=== PATIENT | female | born 1975 | race Caucasian/White ===

== ENCOUNTER → 2016-09-09 | Outpatient (REF) | payer OTHER | LOC: M LAB REF 16:19 | PROVIDERS: ATTEND Physician Assistant | DX: J02.9 Acute pharyngitis, unspecified (principal) ==

== ENCOUNTER 2017-04-01 11:03 | Emergency (ER) | payer OTHER ==
[~2017-04-01] VITALS: Ht 149.9 cm; Wt 97.0 kg
[2017-04-01 11:04] VITALS: BP 165/88
[2017-04-01] MEDS ORDERED: MOTR200T44 PO (11:12)
[2017-04-01] MEDS ORDERED: DIPH25CA PO (11:12)
[2017-04-01] MEDS ORDERED: SERT-155 (11:12)
[2017-04-01] MEDS ORDERED: AMET90TA (11:12)
[2017-04-01] MEDS ORDERED: DOXY-278 PO (11:14)
[2017-04-01] MEDS ORDERED: IBUP80TA PO (13:39)
== END 2017-04-01 13:49 | disposition home or self-care (01) ==
LOC: M ED 11:03
DX: R59.1 Generalized enlarged lymph nodes (principal); R68.84 Jaw pain; Z79.899 Other long term (current) drug therapy; Z88.0 Allergy status to penicillin; Z88.2 Allergy status to sulfonamides; J30.89 Other allergic rhinitis; Z87.898 Personal history of other specified conditions

== ENCOUNTER → 2017-04-02 | Outpatient (CLI) | payer OTHER ==
[~2017-04-02] MED LIST: AMET90TA; DIPH25CA PO; DOXY-278 PO; IBUP80TA PO; MOTR200T44 PO; SERT-155
[2017-04-02 17:39] LABS: MEAN CORPUSCULAR HEMOGLOBIN 31.4 pg (27.0-33.0); MEAN CORPUSCULAR VOLUME 92.3 fl (80.0-96.0); RED CELL DISTRIBUTION WIDTH 11.9 % (11.5-14.5)
[2017-04-02 17:46] LABS: ALBUMIN 3.5 GM/DL (3.2-5.2); ALBUMIN/GLOBULIN RATIO 0.88 (1.00-1.93); ALKALINE PHOSPHATASE 86 U/L (45-117); ALT/SGPT 53 U/L (12-78); ANION GAP 8 MEQ/L (8-16); AST/SGOT 38 U/L (15-37); BILIRUBIN,TOTAL 0.5 MG/DL (0.2-1.0); BLOOD UREA NITROGEN 9 MG/DL (7-18); CALCIUM LEVEL 8.8 MG/DL (8.5-10.1); CARBON DIOXIDE LEVEL 27 MEQ/L (21-32); CHLORIDE LEVEL 104 MEQ/L (98-107); CREATININE FOR GFR 0.55 MG/DL (0.55-1.02); GLOMERULAR FILTRATION RATE > 60.0 (>60); GLUCOSE, FASTING 74 MG/DL (70-105); POTASSIUM SERUM 4.2 MEQ/L (3.5-5.1); SODIUM LEVEL 139 MEQ/L (136-145); TOTAL PROTEIN 7.5 GM/DL (6.4-8.2)
[2017-04-02 18:46] LABS: EOSINOPHILS 5 % (0-5)
[2017-04-05 00:07] LABS: Lyme Disease IgG/IgM Antibodie <0.91 ISR (0.00-0.90); Lyme Disease IgM Ab Quantitati <0.80 index (0.00-0.79)
== END ==
LOC: M WUC 13:22
PROVIDERS: ATTEND Physician Assistant
DX: L02.811 Cutaneous abscess of head [any part, except face] (principal)

== ENCOUNTER → 2017-04-06 | Outpatient (REF) | payer OTHER ==
[2017-04-08 14:12] LABS: SJOGREN'S ANTI SS-A <0.2 AI (0.0-0.9); SJOGREN'S ANTI SS-B <0.2 AI (0.0-0.9)
== END ==
LOC: M LAB REF 15:02
PROVIDERS: ATTEND Internal Medicine
DX: L03.212 Acute lymphangitis of face (principal)

== ENCOUNTER → 2018-01-26 | Outpatient (REF) | payer OTHER | LOC: M LAB REF 16:40 | DX: N39.0 Urinary tract infection, site not specified (principal) ==

== ENCOUNTER → 2018-07-10 | Outpatient (REF) | payer OTHER ==
[~2018-07-10] MED LIST changes: -DOXY-278 PO; +DOXY-350 PO
== END ==
LOC: M LAB REF 11:22
PROVIDERS: ATTEND Radiology Diagnostic Radiology
DX: N60.32 Fibrosclerosis of left breast (principal)

== ENCOUNTER → 2020-08-24 | Outpatient (REF) | payer OTHER ==
[~2020-08-24] MED LIST changes: -DIPH25CA PO; +DIPH25CA32 PO; -SERT-155; +SERT50TA29
[2020-08-25 12:51] LABS: HEPATITIS A ANTIBODY IGM NEGATIVE (NEGATIVE); HEPATITIS B CORE ANTIBODY IGM NEGATIVE (NEGATIVE); HEPATITIS B SURFACE ANTIGEN NEGATIVE (NEGATIVE)
== END ==
LOC: M LAB REF 11:28
PROVIDERS: ATTEND Internal Medicine
DX: K76.0 Fatty (change of) liver, not elsewhere classified (principal); D13.4 Benign neoplasm of liver

== ENCOUNTER → 2021-01-11 | Outpatient (REF) | payer OTHER ==
[2021-01-11 18:19] LABS: C REACTIVE PROTEIN QUANTITATIV 1.02 MG/DL (0.00-0.30)
== END ==
LOC: M LAB REF 16:30
PROVIDERS: ATTEND Internal Medicine
DX: R20.2 Paresthesia of skin (principal); R41.3 Other amnesia

== ENCOUNTER → 2021-02-04 | Outpatient (CLI) | payer OTHER ==
--- NOTE | 2021-02-04 10:29 | REP ---
INDICATION: ASTHMA/DYSPNEA COMPARISON: None. TECHNIQUE: PA and lateral. FINDINGS: The mediastinum and cardiac silhouette are normal. The lung herrera are clear and without acute consolidation, effusion, or pneumothorax. The skeletal structures are intact and normal. IMPRESSION: No acute cardiopulmonary process. <Electronically signed by Fermín Soni > 02/04/21 [id number]
== END ==
LOC: M WUC 09:45
PROVIDERS: ATTEND Internal Medicine
DX: R06.00 Dyspnea, unspecified (principal)

== ENCOUNTER → 2021-05-12 | Outpatient (REF) | payer OTHER | LOC: M LAB REF 16:29 | PROVIDERS: ATTEND Internal Medicine | DX: R20.2 Paresthesia of skin (principal); R41.3 Other amnesia ==

== ENCOUNTER → 2021-05-22 | Outpatient (CLI) | payer OTHER ==
[~2021-05-22] MED LIST changes: +FAMO20TA4 PO; +FLON1SPR; +PROAAER10 INH; +SERT25TA21 PO
== END ==
LOC: M LABSMTC 09:18
PROVIDERS: ATTEND Anesthesiology
DX: Z20.828 Contact with and (suspected) exposure to other viral communicable diseases (principal); Z11.52 Encounter for screening for COVID-19

== ENCOUNTER 2021-05-27 06:03 | Day surgery (SDC) | payer OTHER ==
[~2021-05-27] VITALS: Ht 149.9 cm; Wt 97.1 kg
[~2021-05-27 06:03] MED LIST changes: +LR 1,000 ML IV ONE; +ceFAZolin SOD 2 GM in IV 1 EA IV ONE
--- OUTSIDE RECORDS SUMMARY | 2021-05-27 06:08 | CCD | Continuity of Care Document ---
Author Author Anum GALINDO Organization Unknown Address [address] [place] [id number] Phone [phone] Problems Active Problems Provider Date Allergic asthma without status asthmaticus Alyse Galindo MD Onset: 11/11/2011 Oral contraception Alyse Galindo MD Onset: 11/11/2011 Body mass index 40+ - severely obese Nette Parra WHNP On set: 02/01/2017 Social History Type Date Description Comments Sex Unknown Tobacco Use Start: Unknown Never Smoked Cigarettes Tobacco Use Start: Unknown Non-smoker, Non-drinker, Non-tigist g User Smoking Status Reviewed: 04/16/21 Non-smoker, Non-drinker, Non- drug User Tobacco Use Start: Unknown Patient has never smoked Allergies, Adverse Reactions, Alerts Active Allergies Criticality Reaction | Severity Comments Date PCN Unable to assess criticality 03/03/2006 Sulfa Unable to assess criticality 03/03/2006 Medications Active Medications SIG Qnty Indications Ordering Provide r Date Vitamin D 1,000Units Tablets 2 daily Alyse Galindo MD 10/30/2009 Albuterol Inhalation 90mcg/Dose Ae rosol 2 Puffs Every 6 Hours prn Alyse Galindo MD 2005 Zoloft 50mg Tablets 1 by mouth every day Unknown Benadryl Allergy 25mg Tablets Unknown Immunizations Description No Information Available Vital Signs Date Vital Result Comment 04/16/2021 9:52am BP Systolic 128 mmHg BP Diastolic 74 mmHg Height 59.25 inches 4'11.25" Weight 210.00 lb BMI (Body Mass Index) 42.1 kg/m2 BSA (Body Surface Area) 1.89 m2 04/03/2020 11:32am BP Systolic 136 mmHg BP Diastolic 76 mmHg Height 59.25 inches 4'11.25" Weight 213.00 lb BMI (Body Mass Index) 42.7 kg/m2 BSA (Body Surface Area) 1.90 m2 Results Description No Information Available Procedures Date Code Description Status 04/16/2021 19344 Preventive Visit Est 40-64 Yrs C ompleted 07/10/2018 [id number] Mammogram Completed 07/05/2018 [id number] Mammogram Completed Medical Devices Description No Information Available Encounters Type Date Location Provider Dx Diagnosis Office Visit 04/16/2021 10:00a [facility] program manager slp Alyse Galindo MD N9 2.1 Excessive and frequent menstruation with irregular cycle N94.4 Primary dysmenorrhea D25.1 Intramural leiomyoma of uter us Z01.411 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 R10.819 Abdominal tenderness, unspec ified site Z12.4 Encounter for screening for malignant neoplasm of cervix Z12.39 Encounter for oth screening for malignant neoplasm of breast Assessments Date Code Description Provider 04/16/2021 N92.1 Excessive and frequent menstruat ion with irregular cycle Alyse Galindo MD 04/16/2021 N94.4 Primary dysmenorrhea Janell Galindo MD 04/16/2021 D25.1 Intramural leiomyoma of uterus H Alyse frank MD 04/16/2021 Z01.411 Encounter for gyneco logical examination (general) (routine) with abnormal findings Alyse Galindo MD 04/16/2021 R10.819 Abdominal tenderness, unspecifie d site Alyse Galindo MD 04/16/2021 Z12.4 Encounter for screening for jet gnant neoplasm of cervix Alyse Galindo MD 04/16/2021 Z12.39 Encounter for other screening for malignant neoplasm of breast Alyse Galindo MD Plan of Treatment Future Appointment(s):* 07/07/2021 12:15 pm - Alyse Galindo MD at [facility] program manager slp * 06/09/2021 12:15 pm - Alyse Galindo MD at [facility] program manager slp * 05/27/2021 9:00 am - Alyse Galindo MD at [facility] * 04/29/2022 9:00 am - Alyse Galindo MD at [facility] program manager slp 04/16/2021 - Alyse Galindo MD* N92.1 Excessive and frequent menstruation with irregular cycle * N94.4 Primary dysmenorrhea * D25.1 Intramural leiomyoma of uterus * Z01.411 Encounter for gynecological examination (general) (routine) with abnormal findings * R10.819 Abdominal tenderness, unspecified site * Z12.4 Encounter for screening for malignant neoplasm of cervix* New Labs:* Thinprep W/Reflex HR HPV If Asc-US, Ordered: 04/16/21 * Z12.39 Encounter for other screening for malignant neoplasm of breast Functional Status Description No Information Available Mental Status Description No Information Available Referrals Description No Information Available
--- OUTSIDE RECORDS SUMMARY | 2021-05-27 06:08 | CCD | Continuity of Care Document ---
Author Author Anum Lua M.D. Organization Unknown Address [address] [place] [address] Phone [phone] Care Team Providers Care Licensed Mental Health Counselor Name Role Phone Mary Lua MD [facility] [phone] Problems Active Problems Provider Date Kidney stone Mary Lua M.D. Onset: 1 Chronic nonalcoholic liver disease Mary Lua M.D. O nset: 03/15/2011 Thyrotoxicosis without goiter or other cause Mary beach M.D. Onset: 03/15/2011 Uterine leiomyoma Mary Lua M.D. Onset: 1 Vitamin D deficiency Mary Lua M.D. Onset: 03/15/20 11 Low back pain Mary Lua M.D. Onset: 1 Depressive disorder Mary Lua M.D. Onset: 1 Asthma without status asthmaticus Mary Lua M.D. On set: 03/15/2011 Verruca plantaris Mary Lua M.D. Onset: 1 Social History Type Date Description Comments Sex Unknown ETOH Use Denies alcohol use Tobacco Use Start: Unknown Patient has never smoked Allergies and adverse reactions Active Allergies Criticality Reaction | Severity Comments Date Sulfa Unable to assess criticality Rash 06/03/2008 Penicillins Unable to assess criticality Lips Swell 02/24/2009 Medications Active Medications SIG Qnty Indications Ordering Provide r Date Claritin 10mg Tablets 1 by mouth every day as needed Mary Lua M.D. 05/12/20 21 Afrin 12 Hour 0.05% Solution prn Mary Lua M.D. 02/05/2020 Albuterol Sulfate (2 .5mg/3ML) 0.083% Nebulizer may use 3 milliliters q4-6hr as needed for shortness of breath 7 5ml J06.9 Jeff Barahona MD 07/03/2019 Fluticasone Propionate Nasal [place] 50mcg/Act Suspension 2 sprays in each nostril daily for two weeks 29.7ml J06 .9 Mary Lua M.D. 06/19/2019 Famotidine 20mg Tablets 1 by mouth every day as needed 30tabs Mary Lua M.D. 11/30/19 18 Vitamin D3 2000Unit Tablets 1 by mouth every day- sporatic Mary Lua M.D. 12/2017 Benadryl Allergy 25mg Tablets 1-2 by mouth every night at bedtime Mary Lua M.D. 1 08/07/2016 Sertraline HCL 50mg Tablets Take One To One And One-Half Tablets By Mouth Every Day 135tabs Janet Lua M.D. 08/10/2016 Proair HFA 108(90Base) mcg/Act Aer osol inhale two puffs by mouth four times a day as needed 25.5gm Mary Lua M.D. 01/15/2015 Saline Nasal [place] 0.65% Solution 6-8x/d as directed 1units Mary Lua M.D. 08/07/19 13 Medications Administered in Office Medication SIG Qnty Indications Ordering Provider Date Immunization Adminstration,1 Vaccine/Tox oid Injection Mary Lua M.D. 05/24 Immunization Adminstration,1 Vaccine/Tox oid Injection Mary Lua M.D. 01/21 Immunization Adminstration,1 Vaccine/Tox oid Injection La Nena Newman, FRED 019 Administration Of Flu Vaccine Inj ection Edelmira Brunson,KEVIN 05/17/2005 Administration Of Flu Vaccine Inj ection BoyEdelmira FNP 05/05/2004 Immunizations CPT Code Status Date Vaccine Lot # 12930 Given 06/08/2020 Influenza Vaccin e Quadrivalent Preser/Antibiotic Free Im Use [id number] 89480 Given 02/05/2020 Tetanus/Diptheria(Td)Toxoids Preservative Free [id number] 09473 Given 04/29/2019 Influenza Vaccin e Quadrivalent Preser/Antibiotic Free Im Use 117690 76429 Given 08/29/2017 Influenza Vaccin e Quadrivalent Preser/Antibiotic Free Im Use [id number] Q2037 Given 05/29/2014 Fluvirin Virus Vaccine 52024 21 Q2037 Given 05/28/2013 Fluvirin Virus Vaccine 73681 01 Q2037 Given 05/05/2011 Fluvirin Virus Vaccine 02995 Given 07/01/2010 Adacel- Tetanus Diphtheria P ertussis 56352 Given 05/18/2010 Influenza Virus Vaccine 32045 Given 05/17/2005 Tetanus/Diptheria(Td)Toxoids 27252 Given 05/17/2005 Influenza Virus Vaccine 13485 Given 05/05/2004 Influenza Virus Vaccine Vital Signs Date Vital Result Comment 05/12/2021 11:01am BP Systolic 144 mmHg RT Arm BP Diastolic 80 mmHg RT Arm Heart Rate 78 /min Height 58.50 inches 4'10.50" Weight 213.38 lb O2 Saturation Level with Exercise 98 % RM Air BMI (Body Mass Index) 43.8 kg/m2 02/08/2021 2:06pm BP Systolic 136 mmHg RT Arm BP Diastolic 84 mmHg RT Arm Heart Rate 88 /min Height 58.50 inches 4'10.50" Weight 208.00 lb O2 Saturation Level with Exercise 97 % RM Air BMI (Body Mass Index) 42.7 kg/m2 Results Test Acquired Date Facility Test Result H/L Range Note Coronavirus 2019 Nasopharygeal 05/22/[address] [id number] [phone] Coronavirus 2019 Nasopharygeal ASSAY INFORMATIO <SEE N OTE> 1 Laboratory test finding 05/12/2021 [facility] [address] [place], [place] [id number] [phone] C Reactive Protein Quantitativ 1.05 mg/dL High 0 .00-0.30 Complete Blood Count 05/12/2021 [facility]: [place] [address] [phone] WBC 7.6 x10*3/UL 4.1 - 10.9 RBC 4.78 x10*6/UL 4.20 - 6.30 Hemoglobin 14.6 g/dL 12.0 - 18.0 Hematocrit 42.9 % 37.0 - 51.0 MCV 89.7 fL 80.0 - 97.0 MCH 30.5 pg 26.0 - 32.0 MCHC 34.0 g/dL 31.0 - 38.0 RDW 12.6 % 11.6 - 13.7 PLT 370 x10*3/UL 140 - 440 MPV 8.7 FL 7.8 - 11.0 Lymph % 26.2 % 10.0 - 58.5 Mid % 5.6 % 1.7 - 9.3 Neut % 68.2 % 37.0 - 92.0 Lymph # 2.0 x10*3/UL 0.6 - 4.1 Mid # 0.4 x10*3/UL 0.1 - 0.6 Neut # 5.2 x10*3/UL 2.0 - 7.8 Laboratory test finding 05/12/2021 [facility] [place] [facility]: [place] [address] [phone] Sed Rate 37 mm/hr High 0 - 15 Comprehensive Chem Profile 05/12/2021 [facility]: [place] [address] [phone] Glucose 74 mg/dL 74 - 99 2 BUN 13 mg/dL 7 - 18 Creatinine 0.6 mg/dL 0.6 - 1.3 Sodium 137 mEq/L 136 - 145 Potassium 4.4 mEq/L 3.5 - 5.1 Chloride 100 mEq/L 98 - 107 Carbon Dioxide 23 mEq/L 21 - 32 Calcium 9.1 mg/dL 8.5 - 10.1 Alk. Phosphatase 86 mg/dL 46 - 116 Total Bilirubin 0.7 mg/dL 0.2 - 1.0 Ast (Sgot) 42 U/L High 15 - 37 Alt (SGPT) 80 U/L High 12 - 78 Albumin 3.9 g/dL 3.4 - 5.0 Total Protein 8.0 g/dL 6.4 - 8.2 A/G Ratio 0.95 CALC Low 1.00 - 1.90 GFR >= 60 mL/min >60 GFR >= 60 mL/min >60 3 Lipid Profile 05/12/2021 [facility]: [place] [address] [phone] Cholesterol 222 mg/dL High 131 - 200 Triglycerides 119 mg/dL 30 - 150 HDL Cholesterol 59 mg/dL 35 - 60 LDL (Calculated) 139 CALC 50 - 159 Laboratory test finding 05/12/2021 [facility]: [place] [address] [phone] Thyroid Stimulating Hormone 1.23 uIU/mL 0.3 6 - 3.74 Laboratory test finding 01/11/2021 [facility] [address] [place], [place] [id number] [phone] C Reactive Protein Quantitativ 1.02 mg/dL High 0 .00-0.30 Vitamin B12 Level 401 pg/mL Normal 247-911 4 Complete Blood Count 01/11/2021 [facility]: [place] [address] [phone] WBC 8.1 x10*3/UL 4.1 - 10.9 RBC 4.78 x10*6/UL 4.20 - 6.30 Hemoglobin 14.3 g/dL 12.0 - 18.0 Hematocrit 43.1 % 37.0 - 51.0 MCV 90.1 fL 80.0 - 97.0 MCH 30.0 pg 26.0 - 32.0 MCHC 33.3 g/dL 31.0 - 38.0 RDW 12.8 % 11.6 - 13.7 PLT 352 x10*3/UL 140 - 440 MPV 8.7 FL 7.8 - 11.0 Lymph % 22.4 % 10.0 - 58.5 Mid % 6.0 % 1.7 - 9.3 Neut % 71.6 % 37.0 - 92.0 Lymph # 1.8 x10*3/UL 0.6 - 4.1 Mid # 0.5 x10*3/UL 0.1 - 0.6 Neut # 5.8 x10*3/UL 2.0 - 7.8 Laboratory test finding 01/11/2021 [facility]: [place] [address] [phone] Sed Rate 28 mm/hr High 0 - 15 Magnesium 1.9 mg/dL 1.8 - 2.4 Comprehensive Chem Profile 01/11/2021 [facility]: [place] [address] [phone] Glucose 104 mg/dL High 74 - 99 5 BUN 16 mg/dL 7 - 18 Creatinine 0.7 mg/dL 0.6 - 1.3 Sodium 140 mEq/L 136 - 145 Potassium 3.5 mEq/L 3.5 - 5.1 Chloride 104 mEq/L 98 - 107 Carbon Dioxide 29 mEq/L 21 - 32 Calcium 9.1 mg/dL 8.5 - 10.1 Alk. Phosphatase 81 mg/dL 46 - 116 Total Bilirubin 0.5 mg/dL 0.2 - 1.0 Ast (Sgot) 30 U/L 15 - 37 Alt (SGPT) 60 U/L 12 - 78 Albumin 3.7 g/dL 3.4 - 5.0 Total Protein 7.9 g/dL 6.4 - 8.2 A/G Ratio 0.88 CALC Low 1.00 - 1.90 GFR >= 60 mL/min >60 GFR >= 60 mL/min >60 6 Laboratory test finding 01/11/2021 [facility]: [place] [address] [phone] Thyroid Stimulating Hormone 1.38 uIU/mL 0.3 6 - 3.74 1 ASSAY INFORMATION: Real Time RT-PCR NOTE: The COVID-19 assay has been cleared by the U.S. Food and Drug Administration under the Emergency Use Authorization (EUA). [facility] and [facility] are designated as high complexity laboratories by the Clinical Laboratory Improvement Amendments of 1988(CLIA) and are qualified to perform this test. Not Detected 2 100-125 mg/dL PRE-DIABET ES/FASTING >126 mg/dL DIABETES/FASTING 3 CHRONIC KIDNEY DISEASE STAGI NG PER NKF STAGE I & II GFR >= 60 NORMAL TO MILDLY DECREASED STAGE III GFR 30-59 MODERATELY DECREASED STAGE IV GFR 15-29 SEVERELY DECREASED STAGE V GFR <15 VERY LITTLE GFR LEFT ESRD GFR <15 ON RN CAMP 4 VITAMIN B12 NORMAL RANGE NORMAL 247 - 911 PG/ML INDETERMINATE 211 - 246 PG/ML DEFICIENT LESS THAN 211 PG/ML 5 100-125 mg/dL PRE-DIABET ES/FASTING >126 mg/dL DIABETES/FASTING 6 CHRONIC KIDNEY DISEASE STAGI NG PER NKF STAGE I & II GFR >= 60 NORMAL TO MILDLY DECREASED STAGE III GFR 30-59 MODERATELY DECREASED STAGE IV GFR 15-29 SEVERELY DECREASED STAGE V GFR <15 VERY LITTLE GFR LEFT ESRD GFR <15 ON RN CAMP Procedures Date Code Description Status 05/12/2021 88801 Office/Outpatient Established Mo d MDM 30-39 Min Completed 05/12/2021 66916 EKG/Interpretation & Report Comp leted 02/08/2021 08374 Office/Outpatient Established Mo d MDM 30-39 Min Completed 01/11/2021 68134 Office/Outpatient Established Mo d MDM 30-39 Min Completed 07/10/2018 [id number] Mammogram Completed 07/05/2018 [id number] Mammogram Completed 04/06/2010 [id number] Diabetic Foot Exam Completed Medical Devices Description No Information Available Encounters Type Date Location Provider Dx Diagnosis Office Visit 05/12/2021 11:00a [facility] Z01.810 Encounter for preprocedural cardiovascular examination N94.6 Dysmenorrhea, unspecified J30.9 Allergic rhinitis, unspecifi ed J45.909 Unspecified asthma, uncompli cated F34.1 Dysthymic disorder K30 Functional dyspepsia K76.0 Fatty (change of) liver, not elsewhere classified Z68.41 Body mass index [BMI] 40.0-4 4.9, adult E66.01 Morbid (severe) obesity due to excess calories N20.0 Calculus of kidney L73.9 Follicular disorder, unspeci fied Office Visit 02/08/2021 [facility] R20.2 Paresthesia of skin J45.909 Unspecified asthma, uncompli cated Z86.16 Personal history of Covid-19 F41.9 Anxiety disorder, unspecifie d J30.9 Allergic rhinitis, unspecifi ed K30 Functional dyspepsia K76.0 Fatty (change of) liver, not elsewhere classified Z68.41 Body mass index [BMI] 40.0-4 4.9, adult E66.01 Morbid (severe) obesity due to excess calories Z13.89 Encounter for screening for other disorder Office Visit 01/11/2021 2:00p [facility] Alysia Lua M.D. J45.909 Unspecified asthma, uncompli cated R20.2 Paresthesia of skin T50.B95A Adverse effect of other floridalma l vaccines, initial encounter Z86.16 Personal history of Covid-19 F41.9 Anxiety disorder, unspecifie d J30.9 Allergic rhinitis, unspecifi ed K30 Functional dyspepsia K76.0 Fatty (change of) liver, not elsewhere classified E66.09 Other obesity due to excess calories E78.00 Pure hypercholesterolemia, u nspecified Z68.41 Body mass index [BMI] 40.0-4 4.9, adult Assessments Date Code Description Provider 05/12/2021 Z01.810 Encounter for preprocedural card iovascular examination Mary Lua M.D. 05/12/2021 N94.6 Dysmenorrhea, unspecified Mary Lua M.D. 05/12/2021 J30.9 Allergic rhinitis, unspecified J andrea Lua M.D. 05/12/2021 J45.909 Unspecified asthma, uncomplicate d Mary Lua M.D. 05/12/2021 F34.1 Dysthymic disorder Mary restrepo M.D. 05/12/2021 K30 Functional dyspepsia Mary Mohan M.D. 05/12/2021 K76.0 Fatty (change of) liver, not els ewhere classified Mary Lua M.D. 05/12/2021 Z68.41 Body mass index [BMI]40.0-44.9, adult Mary Lua M.D. 05/12/2021 E66.01 Morbid (severe) obesity due to e xcess calories Mary Lua M.D. 05/12/2021 N20.0 Calculus of kidney Mary restrepo M.D. 05/12/2021 L73.9 Follicular disorder, unspecified Mary Lua M.D. 02/08/2021 R20.2 Paresthesia of skin Mary scales M.D. 02/08/2021 J45.909 Unspecified asthma, uncomplicate d Mary Lua M.D. 02/08/2021 Z86.16 Personal history of Covid-19 Reagan Lua M.D. 02/08/2021 F41.9 Anxiety disorder, unspecified Constance Lua M.D. 02/08/2021 J30.9 Allergic rhinitis, unspecified J andrea Lua M.D. 02/08/2021 K30 Functional dyspepsia Mary Mohan M.D. 02/08/2021 K76.0 Fatty (change of) liver, not els ewhere classified Mary Lua M.D. 02/08/2021 Z68.41 Body mass index [BMI]40.0-44.9, adult Mary Lua M.D. 02/08/2021 E66.01 Morbid (severe) obesity due to e xcess calories Mary Lua M.D. 02/08/2021 Z13.89 Encounter for screening for othe r disorder Mary Lua M.D. 01/11/2021 J45.909 Unspecified asthma, uncomplicate d Mary Lua M.D. 01/11/2021 R20.2 Paresthesia of skin Mary scales M.D. 01/11/2021 T50.B95A Adverse effect of other viral va ccines, initial encounter Mary Lua M.D. 01/11/2021 Z86.16 Personal history of Covid-19 Reagan Lua M.D. 01/11/2021 F41.9 Anxiety disorder, unspecified Constance Lua M.D. 01/11/2021 J30.9 Allergic rhinitis, unspecified J andrea Lua M.D. 01/11/2021 K30 Functional dyspepsia Mary Mohan M.D. 01/11/2021 K76.0 Fatty (change of) liver, not els ewhere classified Mary Lua M.D. 01/11/2021 E66.09 Other obesity due to excess elba jose de jesus Mary Lua M.D. 01/11/2021 E78.00 Pure hypercholesterolemia, unspe cified Mary Lua M.D. 01/11/2021 Z68.41 Body mass index [BMI]40.0-44.9, adult Mary Lua M.D. Plan of Treatment Future Appointment(s):* 08/10/2021 9:10 am - Lab Schedule at [facility] * 08/11/2021 11:30 am - Mary Lua M.D. at [facility] 02/08/2021 - Mary Lua M.D.* R20.2 Paresthesia of skin * J45.909 Unspecified asthma, uncomplicated * Z86.16 Personal history of Covid-19 * F41.9 Anxiety disorder, unspecified * J30.9 Allergic rhinitis, unspecified * K30 Functional dyspepsia * K76.0 Fatty (change of) liver, not elsewhere classified * Z68.41 Body mass index [BMI]40.0-44.9, adult * E66.01 Morbid (severe) obesity due to excess calories * Z13.89 Encounter for screening for other disorder * All * Comments:* 9. Irregular menses. Hysterectomy cancelled because of meaghan COVID. She is holding off on proceeding at this point. She does see her C D Stripper in April 02. Health Maintenance. She had COVID, had vaccine shot #1, refuses vaccine shot #2 because of adverse reactions. Functional Status Description No Information Available Mental Status Description No Information Available Referrals Description No Information Available
--- OUTSIDE RECORDS SUMMARY | 2021-05-27 06:08 | CCD | Continuity of Care Document ---
Author Author Anum Lua M.D. Organization Unknown Address [address] [place] [address] Phone [phone] Care Team Providers Care Director Fundraising Name Role Phone Mary Lua MD [facility] [phone] Problems Active Problems Provider Date Kidney stone [...] Jeff Barahona MD 07/03/2019 Fluticasone Propionate Nasal [place] 50mcg/Act Suspension 2 sprays in each nostril [...] 25.5gm Mary Lua M.D. 01/15/2015 Saline Nasal [place] 0.65% Solution 6-8x/d as directed 1units Mary Lua M.D. 08/07/19 13 Medications Administered in Office Medication SIG Qnty Indications Ordering Provider Date Immunization Adminstration,1 Vaccine/Tox oid Injection Mary Lua M.D. 05/24 Immunization Adminstration,1 Vaccine/Tox oid Injection Mary Lua M.D. 01/21 Immunization Adminstration,1 Vaccine/Tox oid Injection La Nena Nemwan, FRED 019 Administration Of Flu Vaccine Inj ection Edelmira Brunson,KEVIN 05/17/2005 Administration Of Flu Vaccine Inj ection Boy, Edelmira,IT SYSTEMS ANALYST CONSULTANT 05/05/2004 Immunizations CPT Code Status Date Vaccine Lot # [id number] Given 06/08/2020 Influenza Vaccin e Quadrivalent Preser/Antibiotic Free Im Use [id number] 31192 Given 02/05/2020 Tetanus/Diptheria(Td)Toxoids Preservative Free [id number] 87092 Given 04/29/2019 Influenza Vaccin e Quadrivalent Preser/Antibiotic Free Im Use 124891 09337 Given 08/29/2017 Influenza Vaccin e Quadrivalent Preser/Antibiotic Free Im Use 074557 Q2037 Given 05/29/2014 Fluvirin Virus Vaccine 54341 21 Q2037 Given 05/28/2013 Fluvirin Virus Vaccine 63051 01 Q2037 Given 05/05/2011 Fluvirin Virus Vaccine 36231 Given 07/01/2010 Adacel- Tetanus Diphtheria P ertussis 41449 Given 05/18/2010 Influenza Virus Vaccine 42849 Given 05/17/2005 Tetanus/Diptheria(Td)Toxoids 21790 Given 05/17/2005 Influenza Virus Vaccine 19469 Given 05/05/2004 Influenza Virus Vaccine Vital Signs [...] Date Facility Test Result H/L Range Note Laboratory test finding 05/12/2021 [facility] [address] [place], [place] [id number] [phone] C Reactive Protein Quantitativ 1.05 mg/dL High 0 .00-0.30 Complete Blood Count 05/12/2021 [facility] Knitter Machine: [place] [address] [phone] WBC 7.6 x10*3/UL 4.1 - 10.9 RBC [...] 2.0 - 7.8 Laboratory test finding 05/12/2021 [facility] Knitter Machine: [place] [address] [phone] Sed Rate 37 mm/hr High 0 - 15 Comprehensive Chem Profile 05/12/2021 [place] fr[facility] Lee Knitter Machine: Dr Jeff Reidlogg [place], [place] [id number] [phone] Glucose 74 mg/dL 74 - 99 1 BUN 13 mg/dL 7 - 18 Creatinine [...] mL/min >60 GFR >= 60 mL/min >60 2 Lipid Profile 05/12/2021 [facility] Knitter Machine: [place] [address] [phone] Cholesterol 222 mg/dL High 131 - 200 Triglycerides 119 mg/dL 30 - 150 HDL Cholesterol 59 mg/dL 35 - 60 LDL (Calculated) 139 CALC 50 - 159 Laboratory test finding 05/12/2021 [facility] Knitter Machine: [place] [address] [phone] Thyroid Stimulating Hormone 1.23 uIU/mL 0.3 6 - 3.74 Laboratory test finding 01/11/2021 [facility] [address] [place] [address] [phone] C Reactive Protein Quantitativ 1.02 mg/dL High 0 .00-0.30 Vitamin B12 Level 401 pg/mL Normal 247-911 3 Complete Blood Count 01/11/2021 [facility] Knitter Machine: [place] [address] [phone] WBC 8.1 x10*3/UL 4.1 - 10.9 RBC [...] 2.0 - 7.8 Laboratory test finding 01/11/2021 [facility] [employer] [facility] francoise saldana Knitter Machine: Dr [place] [address] [phone] Sed Rate 28 mm/hr High 0 - 15 Magnesium 1.9 mg/dL 1.8 - 2.4 Comprehensive Chem Profile 01/11/2021 [facility] Knitter Machine: Dr Jeff [place] [address] [phone] Glucose 104 mg/dL High 74 - 99 4 BUN 16 mg/dL 7 - 18 Creatinine [...] mL/min >60 GFR >= 60 mL/min >60 5 Laboratory test finding 01/11/2021 [facility] [employer] [employer] [facility] francoise saldana Knitter Machine: Dr Jeff [place] [address] [phone] Thyroid Stimulating Hormone 1.38 uIU/mL 0.3 6 - 3.74 1 100-125 mg/dL PRE-DIABET ES/FASTING >126 mg/dL DIABETES/FASTING 2 CHRONIC KIDNEY DISEASE STAGI NG PER NKF STAGE I & II GFR >= 60 NORMAL TO MILDLY DECREASED STAGE III GFR 30-59 MODERATELY DECREASED STAGE IV GFR 15-29 SEVERELY DECREASED STAGE V GFR <15 VERY LITTLE GFR LEFT ESRD GFR <15 ON CLAIM PROFESSIONAL 3 VITAMIN B12 NORMAL RANGE NORMAL 247 - 911 PG/ML INDETERMINATE 211 - 246 PG/ML DEFICIENT LESS THAN 211 PG/ML 4 100-125 mg/dL PRE-DIABET ES/FASTING >126 mg/dL DIABETES/FASTING 5 CHRONIC KIDNEY DISEASE STAGI NG PER NKF STAGE I & II GFR >= 60 NORMAL TO MILDLY DECREASED STAGE III GFR 30-59 MODERATELY DECREASED STAGE IV GFR 15-29 SEVERELY DECREASED STAGE V GFR <15 VERY LITTLE GFR LEFT ESRD GFR <15 ON CLAIM PROFESSIONAL Procedures Date Code Description Status 02/08/2021 72212 Office/Outpatient Established Mo d MDM 30-39 Min Completed 01/11/2021 91130 Office/Outpatient Established Mo d MDM 30-39 Min Completed 07/10/2018 [id number] Mammogram Completed 07/05/2018 [id number] Mammogram Completed 04/06/2010 [id number] Diabetic Foot Exam Completed Medical Devices Description No Information Available Encounters Type Date Location Provider Dx Diagnosis Office Visit 02/08/2021 2[facility]p [facility] R20.2 Paresthesia of skin J45.909 [...] for other disorder Office Visit 01/11/2021 2:00p [place] [facility] M.[facility]. J45.909 Unspecified asthma, uncompli cated R20.2 [...] 4.9, adult Assessments Date Code Description Provider 02/08/2021 R20.2 Paresthesia of skin Mary scales M.D. 02/08/2021 J45.909 Unspecified asthma, uncomplicate d Mary Lua M.D. 02/08/2021 Z86.16 Personal history of Covid-19 Reagan Lua M.D. 02/08/2021 F41.9 Anxiety disorder, unspecified Constance Lua M.D. 02/08/2021 J30.9 Allergic rhinitis, unspecified Colt Lua M.D. 02/08/2021 K30 Functional dyspepsia Mary [...] Lua M.D. 01/11/2021 J30.9 Allergic rhinitis, unspecified Colt Lua M.D. 01/11/2021 K30 Functional dyspepsia Mary Mohan M.D. 01/11/2021 K76.0 Fatty (change of) liver, not els ewhere classified Mary Lua M.D. 01/11/2021 E66.09 Other obesity due to excess elba jose de jesus Mary Lua M.D. 01/11/2021 E78.00 Pure hypercholesterolemia, unspe cified Mary Lua M.D. 01/11/2021 Z68.41 Body mass index [BMI]40.0-44.9, adult Mary Lua M.D. Plan of Treatment Future Appointment(s):* 08/11/2021 11:30 am - [facility] 02/08/2021 - Mary Lua M.D.* R20.2 Paresthesia [...] at this point. She does see her Tire Curer in April 02. Health Maintenance. She had COVID, had vaccine shot #1, refuses vaccine shot #2 because of adverse reactions. Functional Status Description No Information Available Mental Status Description No Information Available Referrals Description No Information Available
--- OUTSIDE RECORDS SUMMARY | 2021-05-27 06:08 | CCD | Continuity of Care Document ---
Author Author Anum Lua M.D. Organization Unknown Address [address] [place] [address] Phone [phone] Care Team Providers Care Mason Foreman/Superintendant Name Role Phone Mary Lua MD [facility] [phone] Problems Active Problems Provider Date Kidney stone [...] Jeff Barahona MD 07/03/2019 Fluticasone Propionate Nasal [place] 50mcg/Act Suspension 2 sprays in each nostril [...] 25.5gm Mary Lua M.D. 01/15/2015 Saline Nasal [place] 0.65% Solution 6-8x/d as directed 1units Mary [...] Administration Of Flu Vaccine Inj ection Boy, Edelmira,GRIPPER ATTACHER 05/05/2004 Immunizations CPT Code Status Date Vaccine Lot # [id number] Given 06/08/2020 Influenza Vaccin e Quadrivalent Preser/Antibiotic Free Im Use [id number] 98458 Given 02/05/2020 Tetanus/Diptheria(Td)Toxoids Preservative Free [id number] 51589 Given 04/29/2019 Influenza Vaccin e Quadrivalent Preser/Antibiotic Free Im Use 488995 83328 Given 08/29/2017 Influenza Vaccin e Quadrivalent Preser/Antibiotic Free Im Use 086881 Q2037 Given 05/29/2014 Fluvirin Virus Vaccine 03517 21 Q2037 Given 05/28/2013 Fluvirin Virus Vaccine 50527 01 Q2037 Given 05/05/2011 Fluvirin Virus Vaccine 16673 Given 07/01/2010 Adacel- Tetanus Diphtheria P ertussis 84069 Given 05/18/2010 Influenza Virus Vaccine 80203 Given 05/17/2005 Tetanus/Diptheria(Td)Toxoids 76720 Given 05/17/2005 Influenza Virus Vaccine 06750 Given 05/05/2004 Influenza Virus Vaccine Vital Signs [...] H/L Range Note Laboratory test finding 05/12/2021 [facility] [address] [place], [place] [address] [phone] C Reactive Protein Quantitativ 1.05 mg/dL High 0 .00-0.30 Complete Blood Count 05/12/2021 [facility] Cloth Bleaching Range Back Tender: [place] [address] [phone] WBC 7.6 x10*3/UL 4.1 - 10.9 RBC [...] 2.0 - 7.8 Laboratory test finding 05/12/2021 [place] francoise Franklin Cloth Bleaching Range Back Tender: [place] [address] [phone] Sed Rate 37 mm/hr High 0 - 15 Comprehensive Chem Profile 05/12/2021 [place] francoise Lee Cloth Bleaching Range Back Tender: Dr Jeff Reidlogg [place], [place] [address] [phone] Glucose 74 mg/dL 74 - 99 1 [...] 60 mL/min >60 2 Lipid Profile 05/12/2021 [facility] Cloth Bleaching Range Back Tender: [place] [address] [phone] Cholesterol 222 mg/dL High 131 - 200 Triglycerides 119 mg/dL 30 - 150 HDL Cholesterol 59 mg/dL 35 - 60 LDL (Calculated) 139 CALC 50 - 159 Laboratory test finding 05/12/2021 [facility] Cloth Bleaching Range Back Tender: [place] [address] [phone] Thyroid Stimulating Hormone 1.23 uIU/mL 0.3 6 - 3.74 Laboratory test finding 01/11/2021 [facility] [address] [place] [address] [phone] C Reactive Protein Quantitativ 1.02 mg/dL High 0 .00-0.30 Vitamin B12 Level 401 pg/mL Normal 247-911 3 Complete Blood Count 01/11/2021 [facility] Cloth Bleaching Range Back Tender: [place] [address] [phone] WBC 8.1 x10*3/UL 4.1 - 10.9 RBC [...] 2.0 - 7.8 Laboratory test finding 01/11/2021 [facility] Jewel Bearing Facer francoise saldana Cloth Bleaching Range Back Tender: Dr Jeff Bar[place] [address] [phone] Sed Rate 28 mm/hr High 0 - 15 Magnesium 1.9 mg/dL 1.8 - 2.4 Comprehensive Chem Profile 01/11/2021 [facility] Cloth Bleaching Range Back Tender: Dr Jeff Bar[place] [address] [phone] Glucose 104 mg/dL High 74 - 99 [...] mL/min >60 5 Laboratory test finding 01/11/2021 [place] [facility] Bearing Facer francoise saldana Cloth Bleaching Range Back Tender: Dr Jeff Bar[place] [address] [phone] Thyroid Stimulating Hormone 1.38 uIU/mL 0.3 6 - 3.74 1 100-125 mg/dL PRE-DIABET ES/FASTING >126 mg/dL DIABETES/FASTING 2 CHRONIC KIDNEY DISEASE STAGI NG PER NKF STAGE I & II GFR >= 60 NORMAL TO MILDLY DECREASED STAGE III GFR 30-59 MODERATELY DECREASED STAGE IV GFR 15-29 SEVERELY DECREASED STAGE V GFR <15 VERY LITTLE GFR LEFT ESRD GFR <15 ON EXPERIMENTAL WELDER 3 VITAMIN B12 NORMAL RANGE NORMAL 247 [...] LITTLE GFR LEFT ESRD GFR <15 ON EXPERIMENTAL WELDER Procedures Date Code Description Status 05/12/2021 41957 Office/Outpatient Established Mo d MDM 30-39 Min Completed 05/12/2021 77112 EKG/Interpretation & Report Comp leted 02/08/2021 01426 Office/Outpatient Established Mo d MDM 30-39 Min Completed 01/11/2021 47922 Office/Outpatient Established Mo d MDM 30-39 Min Completed 07/10/2018 [id number] Mammogram Completed 07/05/2018 [id number] Mammogram Completed 04/06/2010 [id number] Diabetic Foot Exam Completed Medical Devices Description No Information Available Encounters Type Date Location Provider Dx Diagnosis Office Visit 05/12/2021 11:00a [facility] P[facility] M.D. Z01.810 Encounter for preprocedural cardiovascular [...] disorder, unspeci fied Office Visit 02/08/2021 2:00p [facility] P.[facility]l Lua M.D. R20.2 Paresthesia of skin J45.909 Unspecified asthma, uncompli cated Z86.16 Personal history of Covid-19 F41.9 Anxiety disorder, unspecifie d J30.9 Allergic rhinitis, unspecifi ed K30 Functional dyspepsia K76.0 Fatty (change of) liver, not elsewhere classified Z68.41 Body mass index [BMI] 40.0-4 4.9, adult E66.01 Morbid (severe) obesity due to excess calories Z13.89 Encounter for screening for other disorder Office Visit 01/11/2021 2:00p [facility] Reagan Lua M.D. J45.909 Unspecified asthma, uncompli cated [...] 08/10/2021 9:10 am - Lab Schedule at [facility] * 08/11/2021 11:30 am - Mary Lua M.D. at [facility] 02/08/2021 - Mary Lua M.D.* R20.2 [...] at this point. She does see her Bakery Helper in April 02. Health Maintenance. She had COVID, had vaccine shot #1, refuses vaccine shot #2 because of adverse reactions. Functional Status Description No Information Available Mental Status Description No Information Available Referrals Description No Information Available
--- OUTSIDE RECORDS SUMMARY | 2021-05-27 06:08 | CCD | Continuity of Care Document ---
Author Author Anum Lua M.D. Organization Unknown Address [address] [place] [address] Phone [phone] Care Team Providers Care Strategy Analyst Name Role Phone Mary Lua MD [facility] [phone] Problems Active Problems Provider Date Kidney stone [...] Jeff Barahona MD 07/03/2019 Fluticasone Propionate Nasal [place] 50mcg/Act Suspension 2 sprays in each nostril [...] 25.5gm Mary Lua M.D. 01/15/2015 Saline Nasal [place] 0.65% Solution 6-8x/d as directed 1units Mary [...] Administration Of Flu Vaccine Inj ection Boy, Edelmira,NEONATAL NURSE PRACTITIONER 05/05/2004 Immunizations CPT Code Status Date Vaccine Lot # [id number] Given 06/08/2020 Influenza Vaccin e Quadrivalent Preser/Antibiotic Free Im Use [id number] 17085 Given 02/05/2020 Tetanus/Diptheria(Td)Toxoids Preservative Free [id number] 02440 Given 04/29/2019 Influenza Vaccin e Quadrivalent Preser/Antibiotic Free Im Use 322202 17923 Given 08/29/2017 Influenza Vaccin e Quadrivalent Preser/Antibiotic Free Im Use 779114 Q2037 Given 05/29/2014 Fluvirin Virus Vaccine 83800 21 Q2037 Given 05/28/2013 Fluvirin Virus Vaccine 98868 01 Q2037 Given 05/05/2011 Fluvirin Virus Vaccine 46802 Given 07/01/2010 Adacel- Tetanus Diphtheria P ertussis 17647 Given 05/18/2010 Influenza Virus Vaccine 72457 Given 05/17/2005 Tetanus/Diptheria(Td)Toxoids 24239 Given 05/17/2005 Influenza Virus Vaccine 42090 Given 05/05/2004 Influenza Virus Vaccine Vital Signs [...] H/L Range Note Laboratory test finding 05/12/2021 [facility] [address] [place] [address] [phone] High Sensitivity C-Reactive Protein <pending> Laboratory test finding 05/12/2021 [place] [facility] [employer] francoise saldana Sales Assoc: [place] [address] [phone] Sed Rate <pending> Laboratory test finding 05/12/2021 [place] [facility] [employer] Operator francoise saldana Sales Assoc: Dr Jeff Barahona [place], [place] [address] [phone] TSH <pending> Laboratory test finding 01/11/2021 [facility] [address] [place] [address] [phone] C Reactive Protein Quantitativ 1.02 mg/dL High 0 .00-0.30 Vitamin B12 Level 401 pg/mL Normal 247-911 1 Complete Blood Count 01/11/2021 [place] [facility] Sales Assoc: [place] [address] [phone] WBC 8.1 x10*3/UL 4.1 - 10.9 RBC [...] 2.0 - 7.8 Laboratory test finding 01/11/2021 [place] In[facility] Block Operator francoise saldana Sales Assoc: [place] [address] [phone] Sed Rate 28 mm/hr High 0 - 15 Magnesium 1.9 mg/dL 1.8 - 2.4 Comprehensive Chem Profile 01/11/2021 [place] francoise Lee Sales Assoc: [place] [address] [phone] Glucose 104 mg/dL High 74 - 99 2 BUN 16 mg/dL 7 - 18 Creatinine [...] >60 GFR >= 60 mL/min >60 3 Laboratory test finding 01/11/2021 [place] Inverted Block Operator les, francoise Sales Assoc: Dr Jeff [place] [id number] [phone] Thyroid Stimulating Hormone 1.38 uIU/mL 0.3 6 - 3.74 1 VITAMIN B12 NORMAL RANGE NORMAL 247 - 911 PG/ML INDETERMINATE 211 - 246 PG/ML DEFICIENT LESS THAN 211 PG/ML 2 100-125 mg/dL PRE-DIABET ES/FASTING >126 mg/dL DIABETES/FASTING 3 CHRONIC KIDNEY DISEASE STAGI NG PER NKF STAGE I & II GFR >= 60 NORMAL TO MILDLY DECREASED STAGE III GFR 30-59 MODERATELY DECREASED STAGE IV GFR 15-29 SEVERELY DECREASED STAGE V GFR <15 VERY LITTLE GFR LEFT ESRD GFR <15 ON DAY CARE AIDE Procedures Date Code Description Status 02/08/2021 33923 Office/Outpatient Established Mo d MDM 30-39 Min Completed 01/11/2021 23947 Office/Outpatient Established Mo d MDM 30-39 Min Completed 07/10/2018 [id number] Mammogram Completed 07/05/2018 [id number] Mammogram Completed 04/06/2010 [id number] Diabetic Foot Exam Completed Medical Devices Description No Information Available Encounters Type Date Location Provider Dx Diagnosis Office Visit 02/08/2021 [facility] M.D. R20.2 Paresthesia of skin [...] for other disorder Office Visit 01/11/2021 2:00p [facility] Reagan Lua M.D. J45.909 Unspecified [...] 11:30 am - [facility] 02/08/2021 - Mary Lua M.D.* R20.2 [...] at this point. She does see her Change Lead in April 02. Health Maintenance. She had COVID, had vaccine shot #1, refuses vaccine shot #2 because of adverse reactions. Functional Status Description No Information Available Mental Status Description No Information Available Referrals Description No Information Available
--- OUTSIDE RECORDS SUMMARY | 2021-05-27 06:08 | CCD | Continuity of Care Document ---
Author Author Anum GALINDO Organization Unknown Address [address] [place] [address] Phone [phone] Problems Active Problems Provider Date Allergic asthma [...] Available Procedures Date Code Description Status 04/16/2021 24679 Preventive Visit Est 40-64 Yrs C ompleted 07/10/2018 [id number] Mammogram Completed 07/05/2018 [id number] Mammogram Completed Medical Devices Description No Information Available Encounters Type Date Location Provider Dx Diagnosis Office Visit 04/16/2021 10:00a [facility] bilingual hr generalist Alyse Galindo MD N9 2.1 Excessive and frequent menstruation with irregular cycle N94.4 Primary dysmenorrhea 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
--- OUTSIDE RECORDS SUMMARY | 2021-05-27 06:08 | CCD | Continuity of Care Document ---
Author Author Anum Lua M.D. Organization Unknown Address [address] [place] [address] Phone [phone] Care Team Providers Care Helpdesk Specialist Name Role Phone Mary Lua MD [facility] [phone] Problems Active Problems Provider Date Kidney stone [...] Jeff Barahona MD 07/03/2019 Fluticasone Propionate Nasal [place] 50mcg/Act Suspension 2 sprays in each nostril [...] 25.5gm Mary Lua M.D. 01/15/2015 Saline Nasal [place] 0.65% Solution 6-8x/d as directed 1units Mary [...] Administration Of Flu Vaccine Inj ection Boy, Edelmira,INSPECTOR REPAIRER 05/05/2004 Immunizations CPT Code Status Date Vaccine Lot # [id number] Given 06/08/2020 Influenza Vaccin e Quadrivalent Preser/Antibiotic Free Im Use [id number] 09726 Given 02/05/2020 Tetanus/Diptheria(Td)Toxoids Preservative Free [id number] 07140 Given 04/29/2019 Influenza Vaccin e Quadrivalent Preser/Antibiotic Free Im Use 998011 60296 Given 08/29/2017 Influenza Vaccin e Quadrivalent Preser/Antibiotic Free Im Use 021619 Q2037 Given 05/29/2014 Fluvirin Virus Vaccine 26239 21 Q2037 Given 05/28/2013 Fluvirin Virus Vaccine 73658 01 Q2037 Given 05/05/2011 Fluvirin Virus Vaccine 37579 Given 07/01/2010 Adacel- Tetanus Diphtheria P ertussis 99537 Given 05/18/2010 Influenza Virus Vaccine 97999 Given 05/17/2005 Tetanus/Diptheria(Td)Toxoids 09297 Given 05/17/2005 Influenza Virus Vaccine 19851 Given 05/05/2004 Influenza Virus Vaccine Vital Signs [...] H/L Range Note Laboratory test finding 05/12/2021 [facility] [address] [place], [place] [address] [phone] C Reactive Protein Quantitativ 1.05 mg/dL High 0 .00-0.30 Laboratory test finding 05/12/2021 [facility] isмарина, pc Brick Siding Applicator: [place] [address] [phone] Sed Rate <pending> Laboratory test finding 05/12/2021 [facility] Cash[facility] francoise saldana Brick Siding Applicator: [place] [address] [phone] TSH <pending> Laboratory test finding 01/11/2021 [facility] [address] [place], [place] [address] [phone] C Reactive Protein Quantitativ 1.02 mg/dL High 0 .00-0.30 Vitamin B12 Level 401 pg/mL Normal 247-911 1 Complete Blood Count 01/11/2021 [facility] francoise walter Brick Siding Applicator: [place] [address] [phone] WBC 8.1 x10*3/UL 4.1 - 10.9 RBC [...] 2.0 - 7.8 Laboratory test finding 01/11/2021 [facility] Cash[facility] francoise saldana Brick Siding Applicator: [place] [address] [phone] Sed Rate 28 mm/hr High 0 - 15 Magnesium 1.9 mg/dL 1.8 - 2.4 Comprehensive Chem Profile 01/11/2021 [facility] francoise Lee Brick Siding Applicator: [place] [address] [phone] Glucose 104 mg/dL High 74 - 99 [...] mL/min >60 3 Laboratory test finding 01/11/2021 [facility] Brick Siding Applicator: [place] [address] [phone] Thyroid Stimulating Hormone 1.38 uIU/mL 0.3 6 [...] LITTLE GFR LEFT ESRD GFR <15 ON PROPERTY CLAIMS ADJUSTER Procedures Date Code Description Status 02/08/2021 33602 Office/Outpatient Established Mo d MDM 30-39 Min Completed 01/11/2021 37401 Office/Outpatient Established Mo d MDM 30-39 Min Completed 07/10/2018 [id number] Mammogram Completed 07/05/2018 [id number] Mammogram Completed 04/06/2010 [id number] Diabetic Foot Exam Completed Medical Devices Description No Information Available Encounters Type Date Location Provider Dx Diagnosis Office Visit 02/08/2021 [facility]p [facility] Lua M.D. R20.2 Paresthesia of skin J45.909 [...] for other disorder Office Visit 01/11/2021 2:00p [facility] J45.909 Unspecified asthma, uncompli cated [...] 11:30 am - [facility] 02/08/2021 - Mary Lua M.D.* R20.2 [...] at this point. She does see her Ring Making Machine Operator in April 02. Health Maintenance. She had COVID, had vaccine shot #1, refuses vaccine shot #2 because of adverse reactions. Functional Status Description No Information Available Mental Status Description No Information Available Referrals Description No Information Available
--- OUTSIDE RECORDS SUMMARY | 2021-05-27 06:09 | CCD ---
Author Author [facility] Organization [facility] Address Unknown Phone Unavailable Care Team Providers Care Cut Off Sawyer Log Name Role Phone NOLBERTO, Danita GLYNN Unavailable Unavailable LETTIERE, Danita SIMON PA Unavailable Unavailable LETTIERE, Danita SIMON PA Unavailable Unavailable LETTIERE, Danita SIMON PA Unavailable Unavailable LETTIERE, Danita SIMON PA Unavailable Unavailable LETTIERE, Danita SIMON PA Unavailable Unavailable LETTIERE, Danita SIMON PA Unavailable Unavailable LETTIERE, Danita SIMON PA Unavailable Unavailable LETTIERE, Danita SIMON PA Unavailable Unavailable LETTIERE, Danita SIMON PA Unavailable Unavailable LETTIERE, Danita SIMON PA Unavailable Unavailable LETTIERE, A ALFRED PA Unavailable Unavailable LETTIERE, A ALFRED PA Unavailable Unavailable LETTIERE, Danita SIMON PA Unavailable Unavailable LETTIERE, Danita SIMON PA Unavailable Unavailable LETTIERE, Danita SIMON PA Unavailable Unavailable LETTIERE, A ALFRED PA Unavailable Unavailable LETTIERE, A ALFRED PA Unavailable Unavailable LETTIERE, A ALFRED PA Unavailable Unavailable LETTIERE, A ALFRED PA Unavailable Unavailable LETTIERE, A ALFRED PA Unavailable Unavailable LETTIERE, A ALFRED PA Unavailable Unavailable LETTIERE, Danita SIMON PA Unavailable Unavailable LETTIERE, Danita SIMON PA Unavailable Unavailable LETTIERE, A ALFRED PA Unavailable Unavailable LETTIERE, A ALFRED PA Unavailable Unavailable LETTIERE, A ALFRED PA Unavailable Unavailable LETTIERE, A ALFRED PA Unavailable Unavailable LETTIERE, Danita SIMON PA Unavailable Unavailable LETTIERE, A ALFRED PA Unavailable Unavailable LETTIERE, A ALFRED PA Unavailable Unavailable GALINDO, L MARY CARRILLO Unavailable Unavailable GALINDO, L MARY CARRILLO Unavailable Unavailable GALINDO, L MARY CARRILLO Unavailable Unavailable GALINDO, L MARY CARRILLO Unavailable Unavailable GALINDO, L MARY CARRILLO Unavailable Unavailable GALINDO, L MARY CARRILLO Unavailable Unavailable GALINDO, L MARY CARRILLO Unavailable Unavailable GALINDO, L MARY CARRILLO Unavailable Unavailable GALINDO, L MARY CARRILLO Unavailable Unavailable GALINDO, L MARY CARRILLO Unavailable Unavailable GALINDO, L MARY CARRILLO Unavailable Unavailable GALINDO, L MARY CARRILLO Unavailable Unavailable GALINDO, L MARY CARRILLO Unavailable Unavailable GALINDO, L MARY CARRILLO Unavailable Unavailable GALINDO, L MARY CARRILLO Unavailable Unavailable GALINDO, L MARY CARRILLO Unavailable Unavailable GALINDO, L MARY CARRILLO Unavailable Unavailable GALINDO, L MARY CARRILLO Unavailable Unavailable GALINDO, L MARY CARRILLO Unavailable Unavailable GALINDO, L MARY CARRILLO Unavailable Unavailable GALINDO, L MARY CARRILLO Unavailable Unavailable GALINDO, L MARY CARRILLO Unavailable Unavailable GALINDO, L MARY CARRILLO Unavailable Unavailable GALINDO, L MARY CARRILLO Unavailable Unavailable GALINDO, L MARY CARRILLO Unavailable Unavailable GALINDO, L MARY CARRILLO Unavailable Unavailable GALINDO, L MARY CARRILLO Unavailable Unavailable GALINDO, L MARY CARRILLO Unavailable Unavailable GALINDO, L MARY CARRILLO Unavailable Unavailable GALINDO, L MARY CARRILLO Unavailable Unavailable GALINDO, L MARY CARRILLO Unavailable Unavailable GALINDO, L MARY CARRILLO Unavailable Unavailable GALINDO, L MARY CARRILLO Unavailable Unavailable GALINDO, L MARY CARRILLO Unavailable Unavailable GALINDO, L MARY CARRILLO Unavailable Unavailable GALINDO, L MARY CARRILLO Unavailable Unavailable GALINDO, L MARY CARRILLO Unavailable Unavailable GALINDO, L MARY CARRILLO Unavailable Unavailable GALINDO, L MARY CARRILLO Unavailable Unavailable GALINDO, L MARY CARRILLO Unavailable Unavailable GALINDO, L MARY CARRILLO Unavailable Unavailable GALINDO, L MARY CARRILLO Unavailable Unavailable GALINDO, L MARY CARRILLO Unavailable Unavailable GALINDO, L MARY CARRILLO Unavailable Unavailable GALINDO, L MARY CARRILLO Unavailable Unavailable Bryson Lua MD Unavailable Unavailable Bryson Lua MD Unavailable Unavailable Bryson Lua MD Unavailable Unavailable Bryson Lua MD Unavailable Unavailable Bryson Lua MD Unavailable Unavailable Bryson Lua MD Unavailable Unavailable Bryson Lua MD Unavailable Unavailable Bryson Lua MD Unavailable Unavailable Bryson Lua MD Unavailable Unavailable Bryson Lua MD Unavailable Unavailable ChanellBryson scales MD Unavailable Unavailable ChanellBryson toussaint MD Unavailable Unavailable ChanellBryson toussaint MD Unavailable Unavailable ChanellBryson MD Unavailable Unavailable ChanellBryson MD Unavailable Unavailable ChanellBryson MD Unavailable Unavailable ChanellBryson MD Unavailable Unavailable ChanellBryson scales MD Unavailable Unavailable ChanellBryson MD Unavailable Unavailable ChanellBryson MD Unavailable Unavailable ChanellBryson MD Unavailable Unavailable ChanellBryson MD Unavailable Unavailable ChanellBryson MD Unavailable Unavailable ChanellBryson MD Unavailable Unavailable ChanellBryson MD Unavailable Unavailable ChanellBryson MD Unavailable Unavailable ChanellBryson MD Unavailable Unavailable ChanellBryson MD Unavailable Unavailable ChanellBryson toussaint MD Unavailable Unavailable Bryson Lua MD Unavailable Unavailable ChanellBryson scales MD Unavailable Unavailable Bryson Lua MD Unavailable Unavailable Bryson Lua MD Unavailable Unavailable Bryson Lua MD Unavailable Unavailable ChanellBryson scales MD Unavailable Unavailable Bryson Lua MD Unavailable Unavailable Bryson Lua MD Unavailable Unavailable Bryson Lua MD Unavailable Unavailable Bryson Lua MD Unavailable Unavailable Bryson Lua MD Unavailable Unavailable Bryson Lua MD Unavailable Unavailable Bryson Lua MD Unavailable Unavailable Bryson Lua MD Unavailable Unavailable Bryson Lua MD Unavailable Unavailable Bryson Lua MD Unavailable Unavailable Bryson Lua MD Unavailable Unavailable Bryson Lua MD Unavailable Unavailable Bryson Lua MD Unavailable Unavailable Bryson Lua MD Unavailable Unavailable Bryson Lua MD Unavailable Unavailable Bryson Lua MD Unavailable Unavailable Bryson Lua MD Unavailable Unavailable Bryson Lua MD Unavailable Unavailable Bryson Lua MD Unavailable Unavailable Bryson Lua MD Unavailable Unavailable Bryson Lua MD Unavailable Unavailable Bryson Lua MD Unavailable Unavailable Bryson Lua MD Unavailable Unavailable ChanellBryson toussaint MD Unavailable Unavailable Bryson Lua MD Unavailable Unavailable Chanell, M Mary MD Unavailable Unavailable Bryson Lua MD Unavailable Unavailable Bryson Lua MD Unavailable Unavailable Bryson Lua MD Unavailable Unavailable Bryson Lua MD Unavailable Unavailable Bryson Lua MD Unavailable Unavailable Bryson Lau MD Unavailable Unavailable Bryson Lua MD Unavailable Unavailable Bryson Lua MD Unavailable Unavailable Bryson Lua MD Unavailable Unavailable Bryson Lua MD Unavailable Unavailable Bryson Lua MD Unavailable Unavailable Bryson Lua MD Unavailable Unavailable Bryson Lua MD Unavailable Unavailable Bryson Lua MD Unavailable Unavailable Bryson Lua MD Unavailable Unavailable Bryson Lua MD Unavailable Unavailable Bryson Lua MD Unavailable Unavailable Bryson Lua MD Unavailable Unavailable Bryson Lua MD Unavailable Unavailable Bryson Lua MD Unavailable Unavailable Bryson Lua MD Unavailable Unavailable Bryson Lua MD Unavailable Unavailable Bryson Lua MD Unavailable Unavailable Cougler, S Justin STERILE PROCESSING TECHNOLOGIST Unavailable Unavailable Cougler, S Justin STERILE PROCESSING TECHNOLOGIST Unavailable Unavailable Cougler, S Justin STERILE PROCESSING TECHNOLOGIST Unavailable Unavailable Cougler, S Justin STERILE PROCESSING TECHNOLOGIST Unavailable Unavailable Cougler, S Justin STERILE PROCESSING TECHNOLOGIST Unavailable Unavailable Cougler, S Justin STERILE PROCESSING TECHNOLOGIST Unavailable Unavailable Cougler, S Justin STERILE PROCESSING TECHNOLOGIST Unavailable Unavailable Cougler, S Justin STERILE PROCESSING TECHNOLOGIST Unavailable Unavailable Cougler, S Justin STERILE PROCESSING TECHNOLOGIST Unavailable Unavailable Cougler, S Justin STERILE PROCESSING TECHNOLOGIST Unavailable Unavailable Cougler, S Justin STERILE PROCESSING TECHNOLOGIST Unavailable Unavailable Cougler, S Justin STERILE PROCESSING TECHNOLOGIST Unavailable Unavailable Cougler, S Justin STERILE PROCESSING TECHNOLOGIST Unavailable Unavailable Cougler, S Justin STERILE PROCESSING TECHNOLOGIST Unavailable Unavailable Cougler, S Justin STERILE PROCESSING TECHNOLOGIST Unavailable Unavailable Cougler, S Justin STERILE PROCESSING TECHNOLOGIST Unavailable Unavailable Cougler, S Justin STERILE PROCESSING TECHNOLOGIST Unavailable Unavailable Cougler, S Justin STERILE PROCESSING TECHNOLOGIST Unavailable Unavailable Cougler, S Justin STERILE PROCESSING TECHNOLOGIST Unavailable Unavailable Cougler, S Justin STERILE PROCESSING TECHNOLOGIST Unavailable Unavailable Cougler, S Justin STERILE PROCESSING TECHNOLOGIST Unavailable Unavailable Cougler, S Justin STERILE PROCESSING TECHNOLOGIST Unavailable Unavailable Cougler, S Justin STERILE PROCESSING TECHNOLOGIST Unavailable Unavailable Cougler, S Justin STERILE PROCESSING TECHNOLOGIST Unavailable Unavailable Cougler, S Justin STERILE PROCESSING TECHNOLOGIST Unavailable Unavailable Cougler, S Justin STERILE PROCESSING TECHNOLOGIST Unavailable Unavailable Cougler, S Justin STERILE PROCESSING TECHNOLOGIST Unavailable Unavailable Cougler, S Justin STERILE PROCESSING TECHNOLOGIST Unavailable Unavailable Cougler, S Justin STERILE PROCESSING TECHNOLOGIST Unavailable Unavailable Cougler, S Justin STERILE PROCESSING TECHNOLOGIST Unavailable Unavailable Cougler, S Justin STERILE PROCESSING TECHNOLOGIST Unavailable Unavailable Cougler, S Justin STERILE PROCESSING TECHNOLOGIST Unavailable Unavailable Cougler, S Justin STERILE PROCESSING TECHNOLOGIST Unavailable Unavailable Cougler, S Justin STERILE PROCESSING TECHNOLOGIST Unavailable Unavailable Cougler, S Justin STERILE PROCESSING TECHNOLOGIST Unavailable Unavailable Cougler, S Justin STERILE PROCESSING TECHNOLOGIST Unavailable Unavailable Cougler, S Justin STERILE PROCESSING TECHNOLOGIST Unavailable Unavailable Cougler, S Justin STERILE PROCESSING TECHNOLOGIST Unavailable Unavailable Cougler, S Justin STERILE PROCESSING TECHNOLOGIST Unavailable Unavailable Cougler, S Justin STERILE PROCESSING TECHNOLOGIST Unavailable Unavailable Cougler, S Justin STERILE PROCESSING TECHNOLOGIST Unavailable Unavailable Cougler, S Justin STERILE PROCESSING TECHNOLOGIST Unavailable Unavailable Cougler, S Justin STERILE PROCESSING TECHNOLOGIST Unavailable Unavailable Cougler, S Ujstin STERILE PROCESSING TECHNOLOGIST Unavailable Unavailable Cougler, S Justin STERILE PROCESSING TECHNOLOGIST Unavailable Unavailable Re-disclosure Warning The records that you are about to access may contain information from federally-assisted alcohol or drug abuse programs. If such information is present, then the following federally mandated warning applies: This information has been disclosed to you from records protected by federal confidentiality rules (42 CFR part 2). The federal rules prohibit you from making any further disclosure of this information unless further disclosure is expressly permitted by the written consent of the person to whom it pertains or as otherwise permitted by 42 CFR part 2. A general authorization for the release of medical or other information is NOT sufficient for this purpose. The Federal rules restrict any use of the information to criminally investigate or prosecute any alcohol or drug abuse patient.The records that you are about to access may contain highly sensitive health information, the redisclosure of which is protected by Article 27-F of the [facility] Public Health law. If you continue you may have access to information: Regarding HIV / AIDS; Provided by facilities licensed or operated by the [facility] Office of Mental Health; or Provided by the [facility] Office for People With Developmental Disabilities. If such information is present, then the following [facility] mandated warning applies: This information has been disclosed to you from confidential records which are protected by state law. State law prohibits you from making any further disclosure of this information without the specific written consent of the person to whom it pertains, or as otherwise permitted by law. Any unauthorized further disclosure in violation of state law may result in a fine or senior living sentence or both. A general authorization for the release of medical or other information is NOT sufficient authorization for further disc losure. 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) Unknown Female Problem [facility] ([facility]) Unknown Male Problem [facility] ([facility]) Unknown Male Problem [facility] ([facility]) Encounters Encounter Providers Location Date Indications Data Source(s ) Outpatient Attender: Mary Marte 11:00:00 AM EDT [facility] ([facility] ) 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 Influenza, injectable, MDCK, preservative free, paula valent 06/08/2020 08:58:00 AM EST completed [facility] ([facility]) Medications Medication Brand Name Start Date Product Form Dose Route Admi nistrative Instructions Pharmacy Instructions Status Indications Reaction Description Data Source(s) Loratadine 10 MG Oral Tablet [Claritin] Claritin 05/12/2021 12:00:0 0 AM EDT ORAL active [facility] ([facility]) doxycycline hyclate 100 MG Oral Capsule Doxycycline Hyclate 06/08/2020 12:00:00 AM EST completed [facility] ([facility]) Immunization Adminstration,1 Vaccine/Toxoid 06/08/2020 12:00 :00 AM EST completed [facility] ([facility]) Medication administered onsite doxycycline hyclate 100 MG Oral Capsule DOXYCYCLINE HYCLATE 06/08/2020 12:00:00 AM EST capsule 14 TAKE ONE CAPSULE BY MOUTH TW ICE A DAY FOR 7 DAYS TAKE ONE CAPSULE BY MOUTH TWICE A DAY FOR 7 DAYS SOLD: 06/10/2020 [facility] Insurance Providers Payer name Policy type / Coverage type Policy ID Covered democrat ID Covered democrat's relationship to green Policy Green Plan Information [id number] Part B [id number] Self [id number] [employer] Medigap Part B [id number] Self [id number] [employer] Med[employer]ap Part B [id number] Self [id number] [employer] Medigap Part B [id number] Self [id number] [employer] Medigap Part B [id number] Self [id number] [employer] Medigap Part B [id number] Self [id number] [employer] Medigap Part B [id number] Self [id number] [employer] Medigap Part B [id number] Self [id number] [employer] Medigap Part B [id number] Self [id number] [employer] Medigap Part B [id number] Self [id number] [employer] Medigap Part B [id number] Self [id number] [facility] Trad/MX Medigap Part B [id number] Self [id number] [facility] Trad/MX Commercial [id number] Self 802 [employer] P[employer] Commercial [id number] [employer] (Old) Medigap Part B [id number] Family Dependent [id number] [employer] (Old) Medigap Part B [id number] [id number] Family Dependent [id number] [employer] (Old) Medigap Part B [id number] [id number] Family Dependent [id number] [employer] (Old) Medigap Part B [id number] [id number] [id number] Family Dependent [id number] Umr [employer] Ppo Commercial [id number]. [id number] Family Dependent [id number] Umr [employer] P[employer] Commercial [id number]. [id number] Family Dependent [id number] [employer] P[employer] Commercial [id number] [id number] Family Dependent [id number] [employer] Commercial [id number] [id number] [employer] P[employer] Commercial [id number] [id number] [employer] Commercial [id number] UMR U [id number] Self [id number] UMR U [id number] Self [id number] U[employer] Care Management [id number] 1 [id number] Umr (New [employer]) Commercial [id number] Family Dependent [id number] Umr (as Of 11/21/2017) Commercial [id number] Family Dependent [id number] UMR U [id number] Spouse [id number] [employer] Commercial [id number] Family Dependent [id number] [employer] PPO O [id number] P [id number] [facility] Part B Ppo [id number] Self Ppo Umr/[facility]/[employer] Health Maintenance Organization (HMO) [id number] Family Dependent 1 [id number] [facility] Care Management [id number] 1 [id number] [employer] [id number] Spo [id number] [employer] PI PI r Commercial [id number] Family Dependent [id number] [facility] [id number] S [id number] R [facility] [id number] HU2 [id number] [employer] Commercial [id number] Family Dependent [facility] [id number] HU2 [id number] [employer] [id number] 2 [id number] [facility] Part B [id number] Self [id number] UMR O [id number] P [id number] Problems, Conditions, and Diagnoses Code Display Name Description Problem Type Effective Dates Data Source(s) T50.Z95A Adverse effect of other vacc judie and biological substances, initial encounter ADVERSE EFFECT OF VACCINES AND BIOLOGICAL SUBSTANCES, INIT D iagnosis 09/26/2020 04:50:00 PM [facility] R61 Generalized hyperhidrosis GENERALIZED HYPERHIDROSIS Di agnosis 09/26/2020 04:50:00 PM EST [facility] Surgeries/Procedures Procedure Description Date Indications Data Source(s) ECG ROUTINE ECG W/LEAST 12 LDS W/I&R 05/12/2021 12:00: 00 AM EDT [facility] ([facility]) OFFICE OUTPATIENT VISIT 25 MINUTES 05/12/2021 12:00:00 AM EDT [facility] ([facility]) PERIODIC PREVENTIVE MED EST PATIENT 40-64YRS 12:00:00 AM EDT [facility] ([facility] 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 BRNCDILAT RSPSE SPMTRY PRE&POST-BRNCDILAT ADMN 021 12:00:00 AM EDT [facility]) EMERGENCY DEPARTMENT VISIT LOW/MODER SEVERITY EMERGENCY DEPT VISIT 09/26/2020 12:00:00 AM [facility] OFFICE OUTPATIENT VISIT 25 MINUTES 08/24/2020 12:00:00 AM EST [facility]) Results ID Date Data Source [id number] 05/22/2021 09:00:00 AM EDT [facility]) Name Value Range Interpretation Code Description Data Amalia rce(s) Supporting Document(s) Coronavirus 2019 Nasopharygeal Laboratory test result [facility] ASSAY INFORMATION: Real Time RT-PCR NOTE: The COVID-19 assay has been cleared by the U.S. Food and Drug Administration under the Emergency Use Authorization (EUA). [facility] and [facility] are designated as high complexity laboratories by the Clinical Laboratory Improvement Amendments of 1988(CLIA) and are qualified to perform this test. Not Detected ID Date Data Source [id number] 05/12/2021 11:57:00 AM EDT [facility]) Name Value Range Interpretation Code Description Data Amalia rce(s) Supporting Document(s) C reactive protein [Mass/volume] in Serum or Plasma by High sensitivity method 1.05 mg/dL 0.00-0.30 [facility] ([facility] ) ID Date Data Source [id number] 05/12/2021 11:53:00 AM EDT [facility] ([facility]) Name Value Range Interpretation Code Description Data Amalia rce(s) Supporting Document(s) Thyrotropin [Units/volume] in Serum or Plasma by Detec tion limit <= 0.05 mIU/L 1.23 uIU/mL 0.36-3.74 [facility] ([facility] ) ID Date Data Source [id number] 05/12/2021 11:53:00 AM EDT [facility] ([facility]) Name Value Range Interpretation Code Description Data Amalia rce(s) Supporting Document(s) Cholesterol [Mass/volume] in Serum or Plasma 222 mg/dL 131-200 [facility] ([facility]) Cholesterol in HDL [Mass/volume] in Serum or Plasma 59 mg/dL 35-60 [facility] ([facility]) Triglyceride [Mass/volume] in Serum or Plasma 119 mg/dL 30-150 [facility] ([facility]) Cholesterol in LDL [Mass/volume] in Serum or Plasma by calcu lation 139 CALC 50-159 [facility] ([facility]) ID Date Data Source [id number] 05/12/2021 11:53:00 AM EDT [facility] ([facility]) Name Value Range Interpretation Code Description Data Amalia rce(s) Supporting Document(s) Glucose [Mass/volume] in Serum or Plasma 74 mg/dL 74-99 [facility] ([facility]) 100-125 mg/dL PRE-DIABETES/FASTING >126 mg/dL DIABETES/FASTING Creatinine 0.6 mg/dL 0.6-1.3 [facility] Sodium [Moles/volume] in Serum or Plasma 137 meq/L 136-145 [facility] ([facility]) Urea nitrogen [Mass/volume] in Serum or Plasma 13 mg/dL 7-18 [facility] ([facility]) Calcium [Mass/volume] in Serum or Plasma 9.1 mg/dL 8.5-10.1 [facility] ([facility]) Potassium [Moles/volume] in Serum or Plasma 4.4 meq/L 3.5-5.1 [facility] ([facility]) Carbon dioxide, total [Moles/volume] in Serum or Plasma 23 meq/L 21 -32 [facility] ([facility]) Chloride [Moles/volume] in Serum or Plasma 100 meq/L 98-107 [facility] ([facility]) Alkaline phosphatase isoenzyme [Units/volume] in Serum or Pl asma 86 mg/dL 46-116 [facility] ([facility]) Total Bilirubin 0.7 mg/dL 0.2-1.0 [facility] ([facility]) Albumin [Mass/volume] in Serum or Plasma 3.9 g/dL 3.4-5.0 [facility] ([facility]) Alanine aminotransferase [Enzymatic activity/volume] in Seru m or Plasma 80 U/L 12-78 [facility] ([facility]) Aspartate aminotransferase [Enzymatic activity/volume] in Serum or Plasma 42 U/L 15-37 [facility] ([facility] ) A/G Ratio 0.95 CALC 1.00-1.90 [facility]) Proteinase 3 Ab [Units/volume] in Serum 8.0 g/dL 6.4-8.2 [facility] ([facility]) Glomerular filtration rate/1.73 sq M pre dicted among non-blacks [Volume Rate/Area] in Serum or Plasma by Creatinine-based formula (MDRD) Laboratory test result [facility] Glomerular filtration rate/1.73 sq M pre dicted among blacks [Volume Rate/Area] in Serum or Plasma by Creatinine-based formula (MDRD) Laboratory test result [facility] <content>CHRONIC KIDNEY DISEASE STAGING PER NKF</content>
<content></content>
<content>STAGE I & II GFR >= 60 NORMAL TO MILDLY DECREASED</content>
<content>STAGE III GFR 30-59 MODERATELY DECREASED</content>
<content>STAGE IV GFR 15-29 SEVERELY DECREASED</content>
<content>STAGE V GFR <15 VERY LITTLE GFR LEFT</content>
<content>ESRD GFR <15 ON FOUNTAIN CLERK</content>
<content></content> ID Date Data Source [id number] 05/12/2021 11:53:00 AM EDT [facility] ([facility]) Name Value Range Interpretation Code Description Data Amalia rce(s) Supporting Document(s) Erythrocyte sedimentation rate by Westergren method 37 mm/hr 0-15 [facility] ([facility]) ID Date Data Source [id number] 05/12/2021 11:53:00 AM EDT [facility] ([facility]) Name Value Range Interpretation Code Description Data Amalia rce(s) Supporting Document(s) Leukocytes [#/volume] in Blood by Automated count 7.6 x10*3/UL 4.1-10 .9 [facility] ([facility]) Erythrocytes [#/volume] in Blood by Automated count 4.78 x10*6/UL 4.2 0-6.30 [facility] ([facility]) Hemoglobin [Mass/volume] in Blood 14.6 g/dL 12.0-18.0 [facility] ([facility]) MCV 89.7 fL 80.0-97.0 [facility] ([facility] MCH 30.5 pg 26.0-32.0 [facility] ([facility]) Hematocrit [Volume Fraction] of Blood by Automated count 42.9 % 3 7.0-51.0 [facility] ([facility]) MCHC 34.0 g/dL 31.0-38.0 [facility] ([facility]) Platelets [#/volume] in Blood by Automated count 370 x10*3/UL 140-440 [facility] Erythrocyte distribution width [Ratio] by Automated count 12.6 % 11.6-13.7 [facility] ([facility]) Lymph % 26.2 % 10.0-58.5 [facility] ([facility]) MPV 8.7 FL 7.8-11.0 [facility] ([facility]) Mid % 5.6 % 1.7-9.3 [facility] ([facility] Neut % 68.2 % 37.0-92.0 [facility]) Lymph # 2.0 x10*3/UL 0.6-4.1 [facility] ([facility]) Mid # 0.4 x10*3/UL 0.1-0.6 [facility] ([facility]) Neut # 5.2 x10*3/UL 2.0-7.8 [facility] ([facility]) ID Date Data Source [id number] 01/11/2021 02:56:00 PM EDT [facility] ([facility]) Name Value Range Interpretation Code Description Data Amalia rce(s) Supporting Document(s) C reactive protein [Mass/volume] in Serum or Plasma by High sensitivity method 1.02 mg/dL 0.00-0.[address] [facility] ) Cobalamin (Vitamin B12) [Mass/volume] in Serum or Plasma 401 pg/mL 2 47-911 [facility] VITAMIN B12 NORMAL RANGE NORMAL 247 - 911 PG/ML INDETERMINATE 211 - 246 PG/ML DEFICIENT LESS THAN 211 PG/ML ID Date Data Source [id number] 01/11/2021 02:54:00 PM EDT [facility] Name Value Range Interpretation Code Description Data Amalia rce(s) Supporting Document(s) Thyrotropin [Units/volume] in Serum or Plasma by Detec tion limit <= 0.05 mIU/L 1.38 uIU/mL 0.36-3.74 [facility] ID Date Data Source [id number] 01/11/2021 02:54:00 PM EDT [facility] Name Value Range Interpretation Code Description Data Amalia rce(s) Supporting Document(s) Glucose [Mass/volume] in Serum or Plasma 104 mg/dL 74-99 [facility] ([facility]) 100-125 mg/dL PRE-DIABETES/FASTING >126 mg/dL DIABETES/FASTING Urea nitrogen [Mass/volume] in Serum or Plasma 16 mg/dL 7-18 [facility] ([facility]) Sodium [Moles/volume] in Serum or Plasma 140 meq/L 136-145 [facility] ([facility]) Creatinine 0.7 mg/dL 0.6-1.3 [facility] ([facility]) Potassium [Moles/volume] in Serum or Plasma 3.5 meq/L 3.5-5.1 [facility] ([facility]) Calcium [Mass/volume] in Serum or Plasma 9.1 mg/dL 8.5-10.1 [facility] ([facility]) Carbon dioxide, total [Moles/volume] in Serum or Plasma 29 meq/L 21 -32 [facility] ([facility]) Chloride [Moles/volume] in Serum or Plasma 104 meq/L 98-107 [facility] Alkaline phosphatase isoenzyme [Units/volume] in Serum or Pl asma 81 mg/dL 46-116 [facility] Total Bilirubin 0.5 mg/dL 0.2-1.0 [facility] ([facility]) Aspartate aminotransferase [Enzymatic activity/volume] in Serum or Plasma 30 U/L 15-37 [facility] ([facility] ) Alanine aminotransferase [Enzymatic activity/volume] in Seru m or Plasma 60 U/L 12-78 [facility] ([facility]) Albumin [Mass/volume] in Serum or Plasma 3.7 g/dL 3.4-5.0 [facility] ([facility]) Proteinase 3 Ab [Units/volume] in Serum 7.9 g/dL 6.4-8.2 [facility] Glomerular filtration rate/1.73 sq M pre dicted among non-blacks [Volume Rate/Area] in Serum or Plasma by Creatinine-based formula (MDRD) Laboratory test result [facility] Glomerular filtration rate/1.73 sq M pre dicted among blacks [Volume Rate/Area] in Serum or Plasma by Creatinine-based formula (MDRD) Laboratory test result [facility] <content>CHRONIC KIDNEY DISEASE STAGING PER NKF</content>
<content></content>
<content>STAGE I & II GFR >= 60 NORMAL TO MILDLY DECREASED</content>
<content>STAGE III GFR 30-59 MODERATELY DECREASED</content>
<content>STAGE IV GFR 15-29 SEVERELY DECREASED</content>
<content>STAGE V GFR <15 VERY LITTLE GFR LEFT</content>
<content>ESRD GFR <15 ON FOUNTAIN CLERK</content>
<content></content> A/G Ratio 0.88 CALC 1.00-1.90 [facility] ([facility]) ID Date Data Source [id number] 01/11/2021 02:54:00 PM EDT [facility] Name Value Range Interpretation Code Description Data Amalia rce(s) Supporting Document(s) Erythrocyte sedimentation rate by Westergren method 28 mm/hr 0-15 [facility] Magnesium 1.9 mg/dL 1.8-2.4 [facility] ([facility]) ID Date Data Source [id number] 01/11/2021 02:54:00 PM EDT [facility] Name Value Range Interpretation Code Description Data Amalia rce(s) Supporting Document(s) Leukocytes [#/volume] in Blood by Automated count 8.1 x10*3/UL 4.1-10 .9 [facility] Erythrocytes [#/volume] in Blood by Automated count 4.78 x10*6/UL 4.2 0-6.30 [facility] Hematocrit [Volume Fraction] of Blood by Automated count 43.1 % 3 7.0-51.0 [facility] Hemoglobin [Mass/volume] in Blood 14.3 g/dL 12.0-18.0 [facility] ([facility]) MCV 90.1 fL 80.0-97.0 [facility] ([facility]) MCHC 33.3 g/dL 31.0-38.0 [facility] ([facility]) MCH 30.0 pg 26.0-32.0 [facility] ([facility]) Platelets [#/volume] in Blood by Automated count 352 x10*3/UL 140-440 [facility] Erythrocyte distribution width [Ratio] by Automated count 12.8 % 11.6-13.7 [facility] ([facility]) MPV 8.7 FL 7.8-11.0 [facility] ([facility]) Mid % 6.0 % 1.7-9.3 [facility] ([facility]) Neut % 71.6 % 37.0-92.0 [facility] ([facility]) Lymph % 22.4 % 10.0-58.5 [facility] ([facility]) Lymph # 1.8 x10*3/UL 0.6-4.1 [facility] ([facility]) Neut # 5.8 x10*3/UL 2.0-7.8 [facility] ([facility]) Mid # 0.5 x10*3/UL 0.1-0.6 [facility] ([facility]) ID Date Data Source [id number] 10/07/2020 11:30:00 AM EDT [facility] ([facility]) Name Value Range Interpretation Code Description Data Amalia rce(s) Supporting Document(s) FVC 2.38 [facility] ([facility]) Fev1 2.01 [facility] ([facility]) Fev1/FVC 0.84 [facility] ([facility]) ID Date Data Source [id number] 10/07/2020 10:47:00 AM EDT [facility] ([facility]) Name Value Range Interpretation Code Description Data Amalia rce(s) Supporting Document(s) Alkaline phosphatase isoenzyme [Units/volume] in Serum or Pl asma 86 mg/dL 46-116 [facility] ([facility]) Alanine aminotransferase [Enzymatic activity/volume] in Seru m or Plasma 89 U/L 12-78 [facility] ([facility]) Aspartate aminotransferase [Enzymatic activity/volume] in Serum or Plasma 42 U/L 15-37 [facility] ([facility] ) Total Bilirubin 0.6 mg/dL 0.2-1.0 [facility] ([facility]) Proteinase 3 Ab [Units/volume] in Serum 8.4 g/dL 6.4-8.2 [facility] ([facility]) Albumin [Mass/volume] in Serum or Plasma 4.4 g/dL 3.4-5.0 [facility] ([facility]) A/G Ratio 1.10 CALC 1.00-1.90 [facility]) Direct Bilirubin 0.2 mg/dL 0.0-0.2 [facility] ([facility]) ID Date Data Source [id number] 09/10/2020 12:00:00 AM EST [facility] Mary Lua MD Patient Name: JILLIAN MULLINS [id number] [facility] Date of : Floor Date of Exam: 09/10/2020KYREE Zamora [id number]#: Fax: [phone] EXAM: US PELVIC COMPLETECLINICAL INFORMATION: Fibroids, low back pain.Comparison 08/13/2010.FINDINGS:Both transabdominal and endovaginal probes were utilized.Uterus appears anteverted measuring 9.8 x 4.2 x 6.7 cm. It is best seen onEV probe. The bladder measured 8 x 7.5 x 5.7 cm with bladder volume 179 ccbut detail of the myometrium was better on the EV probe and it showsmultiple fibroids. The largest are a posterior right-sided fibroid 1.4 x .4x 1 cm and midline anterior fibroid subserosal 1.7 x 1.6 x 1.5 cm. Thereis a nabothian cyst in the cervix. The endometrial stripe thickness at 5.2mm is normal without fluid in the endometrial cavity or endocervical canal. No free fluid in the cul-de-sac.The ovaries are not seen with transabdominal or endovaginal probes. Bodyhabitus considerations are limiting.IMPRESSION:1. Heterogeneous appearance of the uterus with multiple fibroids. Thelargest two are posteriorly on the right at 1.4 cm and in mid-linesubserosal fibroid anteriorly 1.7 x 1.6 cm.2. Endometrial stripe 5.2 mm without abnormal fluid in the endometrialcavity or endocervical canal.3. Small nabothian cyst.4. Transabdominal and endovaginal probes were unsuccessful indemonstrating the ovaries which was the same problem on the 08/13/2010ultrasound examination.Accredited by the [employer] in GynecologicalUltrasound.Lito De La Rosa, HIGINIO/Peter you for referring JILLIAN MULLINS to our office. Electronically Signed - LITO DE LA ROSA MD 09/11/20 12:37 Name Value Range Interpretation Code Description Data Amalia rce(s) Supporting Document(s) ID Date Data Source [id number] 09/10/2020 12:00:00 AM EST [facility] Mary Lua MD Patient Name: JILLIAN MULLINS [id number] [facility] Date of : Floor [facility]: [facility] [id number] Fax: [phone] EXAM: US PELVIC COMPLETECLINICAL INFORMATION: Fibroids, low back pain.Comparison 08/13/2010.FINDINGS:Both transabdominal and endovaginal probes were utilized.Uterus appears anteverted measuring 9.8 x 4.2 x 6.7 cm. It is best seen onEV probe. The bladder measured 8 x 7.5 x 5.7 cm with bladder volume 179 ccbut detail of the myometrium was better on the EV probe and it showsmultiple fibroids. The largest are a posterior right-sided fibroid 1.4 x .4x 1 cm and midline anterior fibroid subserosal 1.7 x 1.6 x 1.5 cm. Thereis a nabothian cyst in the cervix. The endometrial stripe thickness at 5.2mm is normal without fluid in the endometrial cavity or endocervical canal. No free fluid in the cul-de-sac.The ovaries are not seen with transabdominal or endovaginal probes. Bodyhabitus considerations are limiting.IMPRESSION:1. Heterogeneous appearance of the uterus with multiple fibroids. Thelargest two are posteriorly on the right at 1.4 cm and in mid-linesubserosal fibroid anteriorly 1.7 x 1.6 cm.2. Endometrial stripe 5.2 mm without abnormal fluid in the endometrialcavity or endocervical canal.3. Small nabothian cyst.4. Transabdominal and endovaginal probes were unsuccessful indemonstrating the ovaries which was the same problem on the 08/13/2010ultrasound examination.Accredited by the [employer] in GynecologicalUltrasound.Lito De La Rosa, HIGINIO/Peter you for referring JILLIAN MULLINS to our office. Electronically Signed - LITO DE LA ROSA MD 09/11/20 12:37 Name Value Range Interpretation Code Description Data [facility] Document(s) ID Date Data Source [id number] 08/24/2020 09:05:00 AM EST [facility] ([facility]) Name Value Range Interpretation Code Description Data [facility](s) Supporting Document(s) Hepatitis B Surface Antigen Laboratory test result [facility] ([facility]) Hepatitis C Virus Emelina Index 0.0 INDEX [facility] ([facility]) Negative Not infected with HCV, unless recent infection is suspected or other evidence exists to indicate HCV infection. Hepatitis A Antibody Igm Laboratory test result [facility] ([facility]) Hepatitis B Core Antibody Igm Laboratory test result [facility] ([facility]) ID Date Data Source [id number] 08/24/2020 09:05:00 AM EST [facility] ([facility]) Name Value Range Interpretation Code Description Data Amalia rce(s) Supporting Document(s) Alkaline phosphatase isoenzyme [Units/volume] in Serum or Pl asma 94 mg/dL 46-116 [facility] ([facility]) Alanine aminotransferase [Enzymatic activity/volume] in Seru m or Plasma 99 U/L 12-78 [facility] ([facility]) Total Bilirubin 0.5 mg/dL 0.2-1.0 [facility] ([facility]) Aspartate aminotransferase [Enzymatic activity/volume] in Serum or Plasma 39 U/L 15-37 [facility] ([facility] ) NOTE: AST,ALT VERIFIED Albumin [Mass/volume] in Serum or Plasma 4.0 g/dL 3.4-5.0 [facility] ([facility]) Proteinase 3 Ab [Units/volume] in Serum 8.1 g/dL 6.4-8.2 [facility] ([facility]) Direct Bilirubin 0.1 mg/dL 0.0-0.2 [facility] ([facility]) A/G Ratio 0.98 CALC 1.00-1.90 [facility]) ID Date Data Source [id number] 06/12/2020 12:00:00 AM EST [facility] Name Value Range Interpretation Code Description Data [facility] rce(s) Supporting Document(s) SARS-CoV2 Rapid Antigen [facility] This lab was reported by [facility]. ID Date Data Source [id number] 04/03/2020 12:00:00 PM EDT [facility] ([facility]) Name Value Range Interpretation Code Description Data Amalia rce(s) Supporting Document(s) TP Reflex HPV ASCUS Laboratory test result [facility] ([facility]) SPECIMEN PART------ A. Cervical, Endocervical, ThinPrep Pap ([facility]) CYTOLOGY HX-------- Date of Last Menstrual Period: 03/06/20 Other Information:Previous Normal Pap: 02/07/18 FINAL DIAGNOSIS---- INTERPRETATION: Negative for Intraepithelial Lesion or Malignancy. SPECIMEN ADEQUACY:Satisfactory for evaluation. Endocervical/transformation zone component present. The specimen is of borderline squamous cellularity. TP Reflex HPV ASCUS Laboratory test result CRYSTAL ([facility]) Procedure Social History Code Duration Value Status Description Data Source(s ) Smoking 04/16/2021 12:00:00 AM EDT Non-smoker, Non-drink er, Non-drug User completed Non-smoker, Non-drinker, Non-drug User [facility] ([facility]) Smoking 06/12/2020 12:00:00 AM EST Patient has never smoked co mpleted Patient has never smoked [facility] ([facility]) Vital Signs ID Date Data Source UNK Name Value Range Interpretation Code Description Data Source(s) Systolic blood pressure 144 mm[Hg] 144 mm[Hg] M EDMICHELLE ([facility]) RT Arm Oxygen saturation in Arterial blood by Pulse oximetry --post exerci se 98 % 98 % MEDMICHELLE ([facility]) RM Air Diastolic blood pressure 80 mm[Hg] 80 mm[Hg] MEDMICHELLE ([facility]) RT Arm Heart rate 78 /min 78 /min MEDMICHELLE ([facility]) Body height 58.50 [in_i] 58.50 [in_i] CRYSTAL ([facility] 4'10.50" Body weight 213.38 [lb_av] 213.38 [lb_av] LACEY T ([facility]) Body mass index (BMI) [Ratio] 43.8 kg/m2 43.8 k g/m2 CRYSTAL ([facility]) Systolic blood pressure 128 mm[Hg] 128 mm[Hg] M EDMICHELLE ([facility]) Diastolic blood pressure 74 mm[Hg] 74 mm[Hg] [facility] ([facility]) Body height 59.25 [in_i] 59.25 [in_i] [facility] ([facility]) 4'11.25" Body weight 210.00 [lb_av] 210.00 [lb_av] MEDEN T ([facility]) Body mass index (BMI) [Ratio] 42.1 kg/m2 42.1 k g/m2 [facility] ([facility]) Body surface area Derived from formula 1.89 m2 1.89 m2 [facility] ([facility]) Oxygen saturation in Arterial blood by Pulse oximetry --post exerci se 97 % 97 % [facility] ([facility]) RM Air Diastolic blood pressure 84 mm[Hg] 84 mm[Hg] [facility] ([facility]) RT Arm Heart rate 88 /min 88 /min [facility] ([facility]) Systolic blood pressure 136 mm[Hg] 136 mm[Hg] M EDENT ([facility]) RT Arm Body height 58.50 [in_i] 58.50 [in_i] [facility] 4'10.50" Body weight 208.00 [lb_av] 208.00 [lb_av] MEDEN T ([facility]) Body mass index (BMI) [Ratio] 42.7 kg/m2 42.7 k g/m2 [facility] ([facility]) Heart rate 80 /min 80 /min [facility] ([facility]) Body height 58.50 [in_i] 58.50 [in_i] [facility] 4'10.50" Body weight 212.00 [lb_av] 212.00 [lb_av] MEDEN T ([facility]) Body mass index (BMI) [Ratio] 43.5 kg/m2 43.5 k g/m2 [facility] ([facility]) Systolic blood pressure 150 mm[Hg] 150 mm[Hg] M EDENT ([facility]) LT Arm Diastolic blood pressure 84 mm[Hg] 84 mm[Hg] [facility] ([facility]) LT Arm Systolic blood pressure 122 mm[Hg] 122 mm[Hg] M EDENT ([facility]) Diastolic blood pressure 90 mm[Hg] 90 mm[Hg] [facility] ([facility]) Body height 58.50 [in_i] 58.50 [in_i] [facility] ([facility]) 4'10.50" Body weight 208.00 [lb_av] 208.00 [lb_av] MEDEN T ([facility]) Oxygen saturation in Arterial blood by Pulse oximetry 98 % 98 % [facility] ([facility]) RM Air Body mass index (BMI) [Ratio] 42.7 kg/m2 42.7 k g/m2 [facility] ([facility]) Heart rate 90 /min 90 /min [facility] ([facility]) Heart rate 64 /min 64 /min [facility] ([facility]) Systolic blood pressure 146 mm[Hg] 146 mm[Hg] [facility] RT Arm Diastolic blood pressure 84 mm[Hg] 84 mm[Hg] [facility] ([facility]) RT Arm Systolic blood pressure 118 mm[Hg] 118 mm[Hg] [facility] Diastolic blood pressure 86 mm[Hg] 86 mm[Hg] [facility] ([facility]) Body height 58.50 [in_i] 58.50 [in_i] [facility] ([facility]) 4'10.50" Body weight 211.50 [lb_av] 211.50 [lb_av] MEDEN T ([facility]) Oxygen saturation in Arterial blood by Pulse oximetry --post exerci se 98 % 98 % [facility] ([facility]) RM Air Body mass index (BMI) [Ratio] 43.4 kg/m2 43.4 k g/m2 [facility] ([facility]) Systolic blood pressure 165 mm[Hg] 165 mm[Hg] M EDENT ([facility]) Diastolic blood pressure 103 mm[Hg] 103 mm[Hg] [facility] ([facility]) Heart rate 86 /min 86 /min [facility] ([facility]) Respiratory rate 16 /min 16 /min [facility] ( [facility]) Oxygen saturation in Arterial blood by Pulse oximetry 98 % 98 % [facility]) Body temperature 98.4 [degF] 98.4 [degF] MED[facility] ([facility]) Body weight 213.00 [lb_av] 213.00 [lb_av] MEDEN T ([facility]) Body height 59 [in_i] 59 [in_i] MED[facility] ([facility]) 4'11" Body mass index (BMI) [Ratio] 43.0 kg/m2 43.0 k g/m2 [facility] ([facility]) Systolic blood pressure 140 mm[Hg] 140 mm[Hg] M EDENT ([facility]) RT Arm Body height 58.50 [in_i] 58.50 [in_i] [facility] 4'10.50" Diastolic blood pressure 86 mm[Hg] 86 mm[Hg] [facility] ([facility]) RT Arm Body weight 214.00 [lb_av] 214.00 [lb_av] MEDEN T ([facility]) Heart rate 68 /min 68 /min [facility] ([facility]) Body mass index (BMI) [Ratio] 44.0 kg/m2 44.0 k g/m2 [facility] ([facility]) Body surface area 1.90 m2 1.90 m2 [facility] ([facility]) Body height 59.25 [in_i] 59.25 [in_i] [facility] ([facility]) 4'11.25" Body weight 213.00 [lb_av] 213.00 [lb_av] MEDEN T ([facility]) Body mass index (BMI) [Ratio] 42.7 kg/m2 42.7 k g/m2 [facility] ([facility]) Systolic blood pressure 136 mm[Hg] 136 mm[Hg] M EDENT ([facility]) Diastolic blood pressure 76 mm[Hg] 76 mm[Hg] [facility] ([facility]) Body surface area Derived from formula 1.90 m2 1.90 m2 [facility] ([facility]) ID Date Data Source [id number] 10/22/2020 07:57:00 AM EDT [facility] Name Value Range Interpretation Code Description Data Source(s) Weight Measurement Method 8 8 [facility] Weight 3360 3360 [facility] pital Temperature Source 7 7 [facility] Temperature 98.6 98.6 [facility] Respiratory Effort 1 1 [facility] Respiratory Rate 16 16 [facility] Pulse Assessment Method 4 4 [facility] Pulse Rate 104 104 [facility] Height 59 59 [facility] Blood Pressure 152/97 152/97 [facility] Weight Measurement Method 8 8 [facility] Weight 3360 3360 [facility] Temperature Source 7 7 [facility] Temperature 98.6 98.6 [facility] Respiratory Effort 1 1 [facility] Respiratory Rate 16 16 [facility] Pulse Assessment Method 4 4 G [facility] Pulse Rate 104 104 [facility] Height 59 59 [facility] Blood Pressure 152/97 152/97 [facility]
[2021-05-27 06:53] LABS: HEMATOCRIT 45.3 % (36.0-47.0); HEMOGLOBIN 14.7 g/dl (12.0-15.5); MEAN CORPUSCULAR HEMOGLOBIN 30.8 pg (27.0-33.0); MEAN CORPUSCULAR HGB CONC 32.5 g/dl (32.0-36.5); MEAN CORPUSCULAR VOLUME 94.8 fl (80.0-96.0); PLATELET COUNT, AUTOMATED 336 10^3/uL (150-450); RED BLOOD COUNT 4.78 10^6/uL (4.00-5.40); WHITE BLOOD COUNT 8.3 10^3/uL (4.0-10.0)
[2021-05-27] MEDS ORDERED: DESFLURANE 240 ML INHALANT As Ordered ONE (07:07)
[2021-05-27] MEDS ORDERED: METHYLENE BLUE 0.5% (5MG/ML) 10 ML AMP (PROVAYBLUE) As Ordered ONE (07:12)
[2021-05-27] MEDS ORDERED: fentaNYL 100 MCG/2 ML INJECTION (J3010) As Ordered ONE (07:15)
[2021-05-27] MEDS ORDERED: LIDOCAINE 2% 100MG/5ML SDV (FOR ANES.) As Ordered ONE ×2 (07:15→07:16)
[2021-05-27] MEDS ORDERED: dexameTHASONE 4 MG/ML 1ML VIAL (J1100 PER 1MG) As Ordered ONE (07:15)
[2021-05-27] MEDS ORDERED: propofoL 200 MG/20 ML VIAL As Ordered ONE ×2 (07:15→09:41)
[2021-05-27] MEDS ORDERED: MIDAZOLAM INJ 2MG/2ML VIAL (J2250 PER 1MG) As Ordered ONE (07:15)
[2021-05-27] MEDS ORDERED: ONDANSETRON 4MG/2ML VIAL As Ordered ONE (07:15)
[2021-05-27] MEDS ORDERED: ROCURONIUM BROMIDE 50 MG/5 ML VIAL As Ordered ONE ×2 (07:15→08:38)
[2021-05-27] MEDS ORDERED: ACETAMINOPHEN 1000MG 100ML IV BTL (OFIRMEV) (J0131 PER 10MG) As Ordered ONE (09:13)
[2021-05-27] MEDS ORDERED: KETOROLAC 60MG 2ML VIAL As Ordered ONE (09:34)
[2021-05-27] MEDS ORDERED: SUGAMMADEX SODIUM 500 MG/5 ML VIAL (BRIDION) As Ordered ONE (09:34)
[2021-05-27] MEDS ORDERED: METOCLOPRAMIDE INJ 10MG/2ML VIAL (J2765 PER 1) As Ordered ONE (09:46)
[2021-05-27] MEDS ORDERED: MORPHINE 1MG/ML IN 0.9% NACL 100ML IV BAG As Ordered ONE (10:07)
[2021-05-27] MEDS ORDERED: fentaNYL 100 MCG/2 ML INJECTION (J3010) IV PRN (10:50)
[2021-05-27] MEDS: LR 1,000 ML IV SCH ×2 (10:50→17:00)
[2021-05-27] MEDS ORDERED: ONDANSETRON 4MG/2ML VIAL IV PRN (10:50)
[2021-05-27] MEDS ORDERED: LR 1,000 ML IV SCH (10:50)
[2021-05-27] MEDS ORDERED: oxyCODONE 5MG TAB PO PRN (10:50)
[2021-05-27] MEDS ORDERED: IBUPROFEN 600MG TAB PO PRN (10:55)
[2021-05-27] MEDS ORDERED: ALBUTEROL 90 MCG/ACT 8GM HFA INHALER INH PRN (10:55)
[2021-05-27] MEDS ORDERED: NORCO, ANEXSIA 5/325MG TABLET (HYDROcodone/ACETAMINOPHEN) PO PRN (10:55)
[2021-05-27 11:30] VITALS: BP 125/73
[2021-05-27 12:00] VITALS: BP 117/79
[2021-05-27 13:00] VITALS: BP 121/82
[2021-05-27 14:00] VITALS: BP 121/82
[2021-05-27] MEDS ORDERED: EPIDURAL/PCA KEYS XX PRN (14:20)
[2021-05-27] MEDS ORDERED: MORPHINE 1MG/ML IN 0.9% NACL 100ML IV BAG IV PRN (14:20)
[2021-05-27] MEDS ORDERED: NS 1,000 ML IV ONE (14:25)
[2021-05-27 15:00] VITALS: BP 130/84
--- NOTE | 2021-05-27 16:20 | RO ---
OPERATIVE NOTE DATE OF OPERATION: 05/27/2021 PREOPERATIVE DIAGNOSIS/INDICATION FOR SURGERY: Pain, bleeding fibroids. POSTOPERATIVE DIAGNOSIS: Pain, bleeding fibroids with additional diagnoses of adhesions and significant varicosities as are documented in photos of the case. PROCEDURE: Robotic-assisted hysterectomy with bilateral salpingo-oophorectomy and lysis of adhesions. SURGEON: Alyse Perez MD PHILOSOPHY AND RELIGION INSTRUCTOR: KEVIN Ren ANESTHESIA: General endotracheal anesthesia. BRIEF DESCRIPTION OF PROCEDURE AND FINDINGS: Anum was brought to the operating room where sufficient general endotracheal anesthesia was induced. She was prepped, draped and positioned in the usual sterile fashion with the uterine manipulator placed and secured for the robotic case and the Casper with the ability to back fill placed. Attention was then turned to the abdomen. A transverse semilunar incision was made below the umbilicus. Sharp and blunt dissection were continued through the subcutaneous tissues to the level of the rectus fascia which was transversely incised and secured with 0 Vicryl retention sutures. The peritoneum was then entered bluntly under direct visualization in an open laparoscopic technique and a Brandyn cannula then placed and CO2 insufflation begun. After adequate CO2 insufflation, the peritoneal cavity was visualized. There were normal, shiny peritoneal surfaces throughout. There were several adhesions of omentum and of intestine. Several of these are pictured. The omentum was adherent in the mid-anterior abdominal line. There were adhesions over the anterior uterus, consistent with her previous section scar, some of those involved with the bladder. There were adhesions over the left infundibulopelvic ligament involving bowel and the epicloacae of the bowel as well. The two left-sided and one right side port for the robot were placed. The patient was placed in Trendelenburg and the robot was docked in the usual fashion and then I moved to the console for the robotic work. Working from the robotic console, I very carefully down the adhesions. We did use the laparoscopic tool to take down some of the anterior midline adhesions before placing all the trocars because they interfering with visualization so some of those were actually brought down with the laparoscopic tools as we placed the rest of the ports and then the adhesions over the infundibulopelvic especially with the patient's multiple varicosities which were just present throughout the pelvis. We had to take those down very carefully with the robot. Much of that work we did was just cold scissors working just very slowly mm by mm so that we could get the bowel far enough away from the infundibulopelvic to make it safe to secure that vascular pedicle. When we had the bowel well enough away and we had isolated the infundibulopelvic, we were able to cauterize and transect it using the bipolar cautery and then just cold scissors again making careful efforts to avoid injuries to bowel or ureter. Then having the ovary freed from the infundibulopelvic, we carefully worked our way to the left pelvic sidewall and then the adhesions to the bladder brought it right up close to the round on that side so before taking the round on that side, we just did the superior aspect of the broad ligament and the infundibulopelvic and then we moved to the patient's right side and freed up some adhesions there as well and then having freed the infundibulopelvic ligament, we carefully cauterized and transected it, worked our way through the superior aspect of the broad ligament and the round ligament on the right side and then having that free, we were able to then dissect further the bladder adhesions and then come back to the round ligament on the left side and again cauterize and transect it. We then carefully worked our way through the anterior leaflet of the broad ligament and created the bladder flap and also dissected free those adhesions. We used the ability to back fill the bladder to carefully delineate the bladder's location and that made it quite possible to safely do this dissection much as these adhesions were like multiple layers of peritoneum and so we could work through many of them with cold scissors but some were vascular and of course we did have to use some cautery for that. Having freed the bladder and avoided injury to it and freed the superior aspect of the broad ligament and the round bilaterally and having the ovaries free but of course attached to the uterus, we then turned our attention to dissecting the uterine vasculature. We worked very carefully through this because as already noted there multiple varicosities for this patient and we started just above the insertion of the uterosacrals so that we could avoid the ureters as well and worked our way medial, leaving the uterosacrals attached to the cuff again to minimize risk of injury to the ureter and we already had created some of the bladder flap but we further dissected the bladder away so that we could readily see where the cup was and then control that uterine vasculature. We had to free the outer vessels in order to cauterize the inner vessels because there were multiple layers in this patient who also has varicosities elsewhere so this was not a tremendous surprise. We also had to cauterize at the superior aspect of the uterosacrals again due to the varicosities but we then made the initial colpotomy posteriorly and worked our way past the uterosacrals up to where we had dissected the uterine vessels and then we made the anterior colpotomy and joined up that dissection and delivered the uterus into the vagina. We then used a V-Loc suture to close the vaginal cuff. The course of the uterosacrals were also resecured. This patient is only 46 and of course needs her support and we then carefully irrigated and monitored the pelvis and with the pressure down a little bit as well and we were able to confirm that we had good hemostasis and felt although given her varicosities, there is a little more jeannette than is typically needed just due to her personal anatomy. We were able to keep our EBL down to 150 and we had good hemostasis and approximation at the cuff after the closure and then the procedure was ended with the CO2 allowed to escape as the patient removed from her Trendelenburg and the umbilical wound closed with the 0 Vicryl retention sutures at the fascial layer and then the skin at all four wounds was closed in a subcuticular stitch of 3-0 Vicryl and dry sterile dressings were then applied. ESTIMATED BLOOD LOSS FOR THE PROCEDURE: Again, about 150 mL. FLUID REPLACEMENT: Crystalloid. COMPLICATIONS: None. CONDITION AND DISPOSITION: Anum tolerated the procedure well and was recovering in the recovery room in good condition.
[2021-05-27] MEDS ORDERED: SERTRALINE HCL 25 MG TABLET PO SCH (21:00)
[2021-05-27 22:00] VITALS: BP 152/93
[2021-05-28] MEDS ORDERED: UNRESOLVED CLARIFICATION ENTRY XX SCH (00:01)
[2021-05-28 02:00] VITALS: BP 150/83
[2021-05-28] MEDS: LR 1,000 ML IV SCH (02:50)
[2021-05-28 06:00] VITALS: BP 152/93
[2021-05-28] MEDS ORDERED: NORCO, ANEXSIA 5/325MG TABLET (HYDROcodone/ACETAMINOPHEN) PO PRN (07:00)
== END 2021-05-28 09:05 | disposition home or self-care (01) ==
LOC: M SDC 06:03 → M MS5PR 11:30 → M SDC 05-28 09:05
PROVIDERS: ATTEND Obstetrics & Gynecology
DX: N92.6 Irregular menstruation, unspecified (principal); K66.0 Peritoneal adhesions (postprocedural) (postinfection); F41.9 Anxiety disorder, unspecified; Z88.0 Allergy status to penicillin; Z88.2 Allergy status to sulfonamides
CPT/HCPCS: 36415; 58571; 81025; 85027; 86850; 86900; 86901; 88307; 96374; J0131; J0690; J1100; J1885; J2250; J2405; J2765; J3010; Q9968

== ENCOUNTER → 2021-08-10 | Outpatient (REF) | payer OTHER ==
[~2021-08-10] MED LIST changes: -LR 1,000 ML IV ONE; -ceFAZolin SOD 2 GM in IV 1 EA IV ONE
== END ==
LOC: M LAB REF 12:20
PROVIDERS: ATTEND Internal Medicine
DX: R20.2 Paresthesia of skin (principal)

== ENCOUNTER → 2022-03-22 | Outpatient (REF) | payer OTHER ==
[2022-03-23 18:00] LABS: HEPATITIS B CORE ANTIBODY IGM NEGATIVE (NEGATIVE); HEPATITIS B SURFACE ANTIGEN NEGATIVE (NEGATIVE); HEPATITIS C VIRUS ABY INDEX 0.1 INDEX (<0.8)
== END ==
LOC: M LAB REF 11:23
PROVIDERS: ATTEND Internal Medicine
DX: R70.0 Elevated erythrocyte sedimentation rate (principal); R53.81 Other malaise

== ENCOUNTER → 2022-04-08 | Outpatient (CLI) | payer OTHER | LOC: M RAD 08:43 | PROVIDERS: ATTEND Internal Medicine | DX: K76.0 Fatty (change of) liver, not elsewhere classified (principal); R60.0 Localized edema ==

== ENCOUNTER → 2022-05-09 | Outpatient (CLI) | payer OTHER | LOC: M RAD 17:12 | PROVIDERS: ATTEND Registered Nurse | DX: R51.9 Headache, unspecified (principal) ==

== ENCOUNTER → 2022-09-23 | Outpatient (REF) | payer OTHER ==
[~2022-09-23] MED LIST changes: +DIPH-435 PO; -DIPH25CA32 PO; -DOXY-350 PO; +DOXY-444 PO
[2022-09-23 12:24] LABS: C REACTIVE PROTEIN QUANTITATIV 1.3 MG/DL (<1.0)
== END ==
LOC: M LAB REF 11:30
PROVIDERS: ATTEND Internal Medicine
DX: R41.3 Other amnesia (principal); R53.81 Other malaise; R70.0 Elevated erythrocyte sedimentation rate

== ENCOUNTER → 2022-09-28 | Outpatient (REF) | payer OTHER | LOC: M LAB REF 12:01 | PROVIDERS: ATTEND Internal Medicine | DX: R70.0 Elevated erythrocyte sedimentation rate (principal); M25.50 Pain in unspecified joint ==

== ENCOUNTER → 2022-11-25 | Outpatient (REF) | payer OTHER | LOC: M LAB REF 12:00 | PROVIDERS: ATTEND Internal Medicine | DX: R53.81 Other malaise (principal); R70.0 Elevated erythrocyte sedimentation rate ==

== ENCOUNTER → 2023-05-15 | Outpatient (REF) | payer OTHER | LOC: M LAB REF 12:12 | PROVIDERS: ATTEND Internal Medicine | DX: G56.01 Carpal tunnel syndrome, right upper limb (principal); L03.114 Cellulitis of left upper limb ==

== ENCOUNTER → 2023-05-19 | Outpatient (REF) | payer OTHER ==
[2023-05-19 14:46] LABS: APPEARANCE, URINE CLEAR (CLEAR); BACTERIA, URINE AUTO NEGATIVE (NEGATIVE); BILIRUBIN, URINE AUTO NEGATIVE (NEGATIVE); BLOOD, URINE BLOOD 2+ (NEGATIVE); COLOR, URINE STRAW (YELLOW); GLUCOSE, URINE (UA) AUTO NEGATIVE (NEGATIVE); KETONE, URINE AUTO NEGATIVE (NEGATIVE); LEUKOCYTE ESTERASE, URINE AUTO 1+ (NEGATIVE); NITRITE, URINE AUTO NEGATIVE (NEGATIVE); PROTEIN, URINE AUTO NEGATIVE (NEGATIVE); RBC, URINE AUTO 16 /HPF (0-3); SPECIFIC GRAVITY URINE AUTO 1.008 (1.002-1.035); SQUAMOUS EPITHELIAL CELL UR AU 1 /HPF (0-6); UROBILINOGEN, URINE AUTO 0.2 mg/dL (0.0-2.0); WBC, URINE AUTO 23 /HPF (0-3)
== END ==
LOC: M LAB REF 12:15
PROVIDERS: ATTEND Internal Medicine
DX: R31.9 Hematuria, unspecified (principal)

== ENCOUNTER → 2023-07-19 | Outpatient (REF) | payer OTHER ==
[2023-07-19 17:55] LABS: URIC ACID 4.6 MG/DL (3.1-7.8)
[2023-07-19 17:57] LABS: RHEUMATOID FACTOR QUANT < 3.5 IU/ML (<14)
== END ==
LOC: M LAB REF 16:38
PROVIDERS: ATTEND Internal Medicine
DX: M19.90 Unspecified osteoarthritis, unspecified site (principal)

== ENCOUNTER → 2024-03-07 | Outpatient (REF) | payer OTHER ==
[~2024-03-07] MED LIST changes: +DOXY-440 PO; -DOXY-444 PO
== END ==
LOC: M LAB REF 16:24
PROVIDERS: ATTEND Internal Medicine
DX: M06.4 Inflammatory polyarthropathy (principal); M25.551 Pain in right hip

== ENCOUNTER → 2024-07-12 | Outpatient (REF) | payer OTHER ==
[2024-07-12 17:23] LABS: APPEARANCE, URINE CLEAR (CLEAR); BACTERIA, URINE AUTO NEGATIVE (NEGATIVE); BILIRUBIN, URINE AUTO NEGATIVE (NEGATIVE); BLOOD, URINE BLOOD 2+ (NEGATIVE); COLOR, URINE YELLOW (YELLOW); GLUCOSE, URINE (UA) AUTO NEGATIVE (NEGATIVE); KETONE, URINE AUTO NEGATIVE (NEGATIVE); LEUKOCYTE ESTERASE, URINE AUTO NEGATIVE (NEGATIVE); MUCUS, URINE SMALL (NEGATIVE); NITRITE, URINE AUTO NEGATIVE (NEGATIVE); PROTEIN, URINE AUTO NEGATIVE (NEGATIVE); RBC, URINE AUTO 11 /HPF (0-3); SPECIFIC GRAVITY URINE AUTO 1.018 (1.002-1.035); SQUAMOUS EPITHELIAL CELL UR AU 0 /HPF (0-6); UROBILINOGEN, URINE AUTO 0.2 mg/dL (0.0-2.0); WBC, URINE AUTO 1 /HPF (0-3)
== END ==
LOC: M LAB REF 16:15
PROVIDERS: ATTEND Internal Medicine
DX: M54.50 Low back pain, unspecified (principal); R53.83 Other fatigue

== ENCOUNTER → 2024-08-14 | Outpatient (REF) | payer OTHER ==
[2024-08-14 14:01] LABS: APPEARANCE, URINE CLEAR (CLEAR); BACTERIA, URINE AUTO 1+ (NEGATIVE); BILIRUBIN, URINE AUTO NEGATIVE (NEGATIVE); BLOOD, URINE BLOOD 2+ (NEGATIVE); COLOR, URINE YELLOW (YELLOW); GLUCOSE, URINE (UA) AUTO NEGATIVE (NEGATIVE); KETONE, URINE AUTO NEGATIVE (NEGATIVE); LEUKOCYTE ESTERASE, URINE AUTO NEGATIVE (NEGATIVE); MUCUS, URINE SMALL (NEGATIVE); NITRITE, URINE AUTO NEGATIVE (NEGATIVE); PROTEIN, URINE AUTO NEGATIVE (NEGATIVE); RBC, URINE AUTO 1 /HPF (0-3); SPECIFIC GRAVITY URINE AUTO 1.023 (1.002-1.035); SQUAMOUS EPITHELIAL CELL UR AU 2 /HPF (0-6); UROBILINOGEN, URINE AUTO 0.2 mg/dL (0.0-2.0); WBC, URINE AUTO 0 /HPF (0-3)
== END ==
LOC: M LAB REF 13:06
PROVIDERS: ATTEND Physician Assistant Medical
DX: R31.9 Hematuria, unspecified (principal)

== ENCOUNTER → 2024-09-18 | Outpatient (REF) | payer OTHER ==
[2024-09-18 17:03] LABS: APPEARANCE, URINE CLOUDY (CLEAR); BACTERIA, URINE AUTO NEGATIVE (NEGATIVE); BILIRUBIN, URINE AUTO NEGATIVE (NEGATIVE); BLOOD, URINE BLOOD 2+ (NEGATIVE); COLOR, URINE AMBER (YELLOW); GLUCOSE, URINE (UA) AUTO NEGATIVE (NEGATIVE); KETONE, URINE AUTO NEGATIVE (NEGATIVE); LEUKOCYTE ESTERASE, URINE AUTO NEGATIVE (NEGATIVE); MUCUS, URINE SMALL (NEGATIVE); NITRITE, URINE AUTO NEGATIVE (NEGATIVE); PROTEIN, URINE AUTO NEGATIVE (NEGATIVE); RBC, URINE AUTO 3 /HPF (0-3); SPECIFIC GRAVITY URINE AUTO 1.021 (1.002-1.035); SQUAMOUS EPITHELIAL CELL UR AU 1 /HPF (0-6); UROBILINOGEN, URINE AUTO 0.2 mg/dL (0.0-2.0); WBC, URINE AUTO 12 /HPF (0-3)
== END ==
LOC: M LAB REF 16:28
PROVIDERS: ATTEND Internal Medicine
DX: R31.9 Hematuria, unspecified (principal)